=== PATIENT | female | born 1995 | race Caucasian/White ===

== ENCOUNTER 2020-05-14 00:17 | Outpatient (CLI) | payer BC, OTHER, SELFPAY ==
[2020-05-14 16:19] LABS: SARS-CoV-2 RNA PCR Negative
== END 2020-05-14 00:18 | disposition home or self-care (01) ==
LOC: ANHCOVIDDT 00:17
PROVIDERS: PCP Family Medicine; Visit Provider Internal Medicine Gastroenterology
DX: Z01.818 Encounter for other preprocedural examination (principal); Z11.59 Encounter for screening for other viral diseases; R19.7 Diarrhea, unspecified
CPT/HCPCS: 87635; C9803; U0003

== ENCOUNTER 2020-05-17 00:14 | Day surgery (SDC) | payer BC, OTHER, SELFPAY ==
[2020-05-10 13:27] VITALS: BMI 40.4
[2020-05-17 06:08] VITALS: BP 139/81; PULSE 63; RESP 18; TEMP 36.9; O2SAT 100
[2020-05-17] MEDS: LACTATED RINGERS 1,000 ML 150 ML IV CONT (06:41)
--- NOTE | 2020-05-17 07:17 | WPDANESEPPF ---
Anes - Initial Pre Proc Eval Procedure: Operation Date: 05/17/20 07:30 Proposed Procedures p Esophagogastroduodenoscopy & Colonoscopy - Yevgeniy Chavarria MD Date/Time: 05/17/20 07:17 Surgeon: Yevgeniy Chavarria MD Pre Op Diagnosis: Reflux/ Diarrhea Patient Data Age: 24 Gender: F Height: 1.68 m Weight: 115.5 kg Last Vital Signs Temp 36.9 C 05/17/20 06:08 Pulse 63 05/17/20 06:08 Resp 18 05/17/20 06:08 BP 139/81 05/17/20 06:08 Pulse Ox 100 05/17/20 06:08 Allergies Allergy/AdvReac Type Severity Reaction Status Date / Time No Known Allergies Allergy Unknown Verified 05/17/20 06:27 general anesthesia Allergy Severe Vomiting Uncoded 05/17/20 06:27 Home Medications Medication Instructions Recorded Confirmed Type lactobacillus combination no.4 3 3,000 mmu cells PO DAILY 10/20/19 05/17/20 History billion cell capsule levonorgestrel 20 mcg/24 hours (5 1 device I-UTERINE ONCE 10/20/19 05/10/20 History yrs) 52 mg intrauterine device B12 Injection 05/10/20 History peg 3350-electrolytes 236 240 ml PO Q10M #4000 ml 05/13/20 Rx gram-22.74 gram-6.74 gram-5.86 gram solution Patient hx anesthesia problems: none Family hx anesthesia problems: none PMFSH Past Medical History Medical History (Updated 04/28/20 @ 08:53 by Yevgeniy Chvaarria MD) Gastroesophageal reflux disease Leg pain Marijuana use, continuous Myalgia Thinning hair Vaginal discharge Surgical History Surgical History (Updated 04/28/20 @ 08:53 by Yevgeniy Chavarria MD) Bariatric surgery status History of laparoscopic cholecystectomy 2016 History of surgery on arm Social History Social History Smoking status: Never smoker Second hand tobacco smoke exposure: No Alcohol intake: current Drinks per week: 12 Substance use: current Substance use type: marijuana and crack/cocaine Gender identity (if verbalized by the patient): Female Anes - Eval Final PreProcedure Day of Procedure 05/17/20 07:17 Patient weight: morbidly obese Heart: regular rate and rhythm Lungs: clear to auscultation and normal air movement Airway: Mallampati scale class II Neurological: alert and oriented Last oral intake: >/= 8 hours ASA classification: III Emergent: no Anesthetic plan: proceed Anesthesia type and monitoring: general GIVS Informed Consent: The patient's anesthetic plan and its attendant risks and benefits were discussed with the patient/family/POA. Questions were solicited and answers provided to the satisfaction of the patient/family/POA.
--- NOTE | 2020-05-17 07:35 | WPDHPUPDATE1 ---
History and Physical Update Update Date/Time: 05/17/20 07:35 History and Physical has been reviewed, including an updated exam of the patient. There are NO changes in the patient's condition. Risks, benefits, and alternatives have been discussed and questions answered. Patient agrees to proceed with procedure.
--- NOTE | 2020-05-17 07:52 | SUR.OPER ---
7530 FAMILY CALLED(JO) AND UPDATED TAKING PATIENT TO PROCEDURE ROOM
[2020-05-17 08:06] VITALS: BP 110/60; PULSE 57; RESP 16; O2SAT 100
[2020-05-17 08:16] VITALS: BP 96/56; PULSE 54; RESP 18; O2SAT 99
[2020-05-17 08:26] VITALS: BP 112/63; PULSE 51; RESP 20; O2SAT 100
== END 2020-05-17 08:40 | disposition home or self-care (01) ==
PROVIDERS: PCP Family Medicine; Visit Provider Internal Medicine Gastroenterology
PROC: 0DJ08ZZ Inspection of Upper Intestinal Tract, Via Natural or Artificial Opening Endoscopic (ICD-10-PCS; CPT 43235; principal; 2020-05-17 07:30)
DX: R19.7 Diarrhea, unspecified (principal); K44.9 Diaphragmatic hernia without obstruction or gangrene; K21.0 Gastro-esophageal reflux disease with esophagitis; K29.50 Unspecified chronic gastritis without bleeding; Z98.84 Bariatric surgery status; F12.90 Cannabis use, unspecified, uncomplicated; E66.01 Morbid (severe) obesity due to excess calories; Z68.41 Body mass index [BMI] 40.0-44.9, adult
CPT/HCPCS: 45380; 43239; 88305; 88342; J2704; J7120

== ENCOUNTER 2021-03-22 11:06 | Outpatient (CLI) | payer BC, OTHER, SELFPAY ==
[2021-03-22 13:04] LABS: Hemoglobin 12.3 g/dL (12.0-15.0)
[2021-03-22 13:22] LABS: Glucose 1 Hour PP 50gm Dose 111 mg/dL
[2021-03-23 04:07] LABS: HIV 1/2 Ab P24 Ag Result Negative (Negative)
== END 2021-03-22 11:07 | disposition home or self-care (01) ==
PROVIDERS: PCP Family Medicine; Visit Provider Obstetrics & Gynecology
DX: Z34.92 Encounter for supervision of normal pregnancy, unspecified, second trimester (principal)
CPT/HCPCS: 36415; 82947; 85014; 85018; 86703; G0432

== ENCOUNTER 2021-05-01 11:19 | Observation (INO) | payer BC, OTHER, SELFPAY ==
--- NOTE | 2021-05-01 11:17 | PC.NURSE ---
Report to Honey in OB. Taken directly to OB.
--- NOTE | 2021-05-01 11:19 | LDADM ---
This patient, Ivonne Carlos, was admitted to OB Post 116 on 05/01/21 at 11:19. Plans for labor, pain management and were discussed with patient. Patient/family oriented to hospital policies and general routines including ID bracelet, bed and alarms, visiting hours, pain management, procedures, bathroom and other care routines, personal items, smoking policy, room service/diet and guest tray routines, infant security routines, and visiting hours. Patient/Family are encouraged to report perceived risks to care and to ask questions if they do not understand what they are told or what they should do. See OBIX for further documentation.
[2021-05-01 11:34] VITALS: BP 127/75; PULSE 73
[2021-05-01 11:45] VITALS: BP 118/69; PULSE 68
[2021-05-01 12:00] VITALS: BP 121/68; PULSE 67
[2021-05-01 12:02] LABS: Add Urine Microscopic? YES; Appearance Urine Cloudy (Clear); Bacteria Urine Trace /hpf; Bilirubin Urine Negative (Negative); Blood Urine Negative (Negative); Color Urine Amber (Yellow); Glucose Urine UA Negative (Negative); Ketones Urine 2+ mg/dL (Negative); Leukocyte Esterase Ur Negative LEU/UL (Negative); Mucus Urine Heavy /lpf; Nitrate Urine Negative (Negative); Protein Urine 1+ mg/dL (Negative); RBC Urine 0-2 /hpf (0-2); Specific Grav Ur 1.024 (1.001-1.035); Squamous Epithelial Cell Urine Many /hpf (Few); Urobilinogen Urine Negative mg/dL (<2.0); WBC Urine 0-3 /hpf
[2021-05-01 12:15] VITALS: BP 124/73; PULSE 65
[2021-05-01 12:30] VITALS: BP 131/66; PULSE 72
[2021-05-01] MEDS: DEXTROSE 5%/LACTATED RINGERS 1,000 ML 999 ML IV CONT ×2 (12:44→13:53)
[2021-05-01] MEDS: FAMOTIDINE 20 MG/2 ML VIAL IV PUSH (13:53)
--- NOTE | 2021-05-03 11:41 | PM.OBTRLD ---
OB - Triage/Final Diagnosis Visit Information Reason for evaluation: threatened labor Comments/Additional reasons for admission: I have assessed the risk for this patient, Ivonne Carlos, and determined that she would benefit from observation care. Evaluation Laboratory results: Laboratory Tests 05/01/21 11:50 Urine Color Kristy Urine Appearance Cloudy H Urine pH 6.0 Ur Specific [place] 1.024 Urine Protein 1+ H Urine Glucose (UA) Negative Urine Ketones 2+ H Ur Blood (Man) Negative Urine Nitrate Negative Urine Bilirubin Negative Urine Urobilinogen Negative Leukocyte Esterase Rfl Negative Urine RBC 0-2 Urine WBC 0-3 Ur Squamous Epith Cells Many H Urine Bacteria Trace Urine Mucus Heavy H
== END 2021-05-01 15:10 | disposition home or self-care (01) ==
PROVIDERS: Admitting Provider Obstetrics & Gynecology; Visit Provider Obstetrics & Gynecology
DX: O47.9 False labor, unspecified (principal); Z3A.00 Weeks of gestation of pregnancy not specified
CPT/HCPCS: 81001; 96361; 96374; G0378; G0379; J7121

== ENCOUNTER 2021-05-29 18:26 | Observation (INO) | payer BC, OTHER, SELFPAY ==
[2021-05-29 18:46] VITALS: BP 118/69; PULSE 74
[2021-05-29 19:00] VITALS: BP 121/69; PULSE 74
[2021-05-29 19:15] VITALS: BP 123/71; PULSE 63
[2021-05-29 19:46] VITALS: BMI 40.1
--- NOTE | 2021-05-29 20:59 | PC.NURSE ---
Pt to OB with pelvic pressures amnd possible ROM. Stated she had increased vaginal discharge and feeling damp . ROM plus was negative, No contractions noted. Dr. Altamirano notified. Will discharge pt to home. Pt to follow up for ultrasound tomorrow and office on saturday,
--- NOTE | 2021-05-30 09:10 | PM.OBTRLD ---
OB - Triage/Final Diagnosis Visit Information Comments/Additional reasons for admission: I have assessed the risk for this patient, Ivonne Carlos, and determined that she would benefit from observation care. Evaluation Vital signs: Vital Signs - 24 hr 05/29/21 18:46 05/29/21 19:00 05/29/21 19:15 Pulse Rate 74 74 63 Blood Pressure 118/69 121/69 123/71 Final Diagnosis (1) Pelvic pressure in : Code(s): O26.899 - Other specified related conditions, unspecified trimester; R10.2 - Pelvic and perineal pain Status: Acute
== END 2021-05-29 19:50 | disposition home or self-care (01) ==
PROVIDERS: Admitting Provider Obstetrics & Gynecology; PCP Family Medicine; Visit Provider Obstetrics & Gynecology
DX: O26.893 Other specified pregnancy related conditions, third trimester (principal); R10.2 Pelvic and perineal pain; Z3A.37 37 weeks gestation of pregnancy
CPT/HCPCS: 84112; G0378; G0379

== ENCOUNTER 2021-06-05 06:01 | Inpatient (IN) | payer BC, OTHER, SELFPAY ==
[2021-06-05] VITALS (109 sets, daily range): BP systolic 91–134; BP diastolic 40–108; PULSE 50–180; RESP 16; TEMP 36.3–36.8; O2SAT 91–100; BMI 40.5
[2021-06-05] MEDS: LACTATED RINGERS 1,000 ML 125 ML IV CONT ×2 (06:47→08:41)
[2021-06-05] MEDS: AMPICILLIN 2 GM/NS 100 ML 2 GM/100 ML BAG IVPB (06:48)
[2021-06-05] MEDS: OXYTOCIN 30 UNITS/NS 500 ML 30 UNITS/500 ML BAG IV CONT (06:52)
[2021-06-05 06:54] LABS: Basophils Percent Auto 0.3 % (0.2-1.2); Eosinophils Absolute Auto 0.1 K/mm3 (0-0.3); Eosinophils Percent Auto 0.5 % (0-4.4); Hematocrit 36.3 % (37.0-47.0); Hemoglobin 12.3 g/dL (12.0-15.0); Immature Granulocyte Absolute 0.11 K/mm3 (0.00-0.031); Lymphocytes Percent Auto 13.1 % (18.3-44.2); Mean Corpuscular HGB Conc 33.9 g/dl (32-36); Mean Corpuscular Volume 88.5 fl (80-100); Mean Platelet Volume 8.6 fl (7.4-10.4); Monocytes Absolute Auto 0.6 K/mm3 (0.1-0.6); Monocytes Percent Auto 5.3 % (2.6-8.5); Neutrophils Absolute Auto 8.5 K/mm3 (1.3-6.7); Neutrophils Percent Auto 79.8 % (45.5-73.1); Platelet Count Result 142 k/mm3 (150-375); White Blood Count 10.7 K/mm3 (4.5-10.0)
--- NOTE | 2021-06-05 07:17 | LDADM ---
This patient, Ivonne Carlos, was admitted to Labor/Delivery/Recovery 105 on 06/05/21 at 06:01. Plans for labor, pain management and were discussed with patient. Patient/family oriented to hospital policies and general routines including ID bracelet, bed and alarms, visiting hours, pain management, procedures, bathroom and other care routines, personal items, smoking policy, room service/diet and guest tray routines, security routines, and visiting hours. Patient/Family are encouraged to report perceived risks to care and to ask questions if they do not understand what they are told or what they should do. See OBIX for further documentation.
[2021-06-05 07:58] LABS: Rapid Plasma Reagin Non-Reactive (NonReactive)
--- NOTE | 2021-06-05 08:48 | WPDANESEPPF ---
Anes - Initial Pre Proc Eval Procedure: labor epidural Date/Time: 06/05/21 08:48 Surgeon: Jeramy Lynn MD Pre Op Diagnosis: labor pain Pre Op Diagnosis: Induction of Labor Patient Data Age: 25 Gender: F Height: 1.68 m Weight: 114 kg Last Vital Signs Temp 36.8 C 06/05/21 07:30 Pulse 54 L 06/05/21 08:46 BP 111/72 06/05/21 08:46 Pulse Ox 100 06/05/21 08:44 Allergies Allergy/AdvReac Type Severity Reaction Status Date / Time No Known Allergies Allergy Unknown Verified 10/14/20 10:30 Home Medications Medication Instructions Recorded Confirmed Type cyanocobalamin (vitamin B-12) 1,000 mcg IM MONTHLY #1 ml 10/14/20 06/05/21 Rx 1,000 mcg/mL injection solution PNV cmb#95-ferrous fumarate-FA 1 tablet PO DAILY 05/24/21 06/05/21 History [] metoclopramide HCl [Reglan] 10 mg PO Q6H PRN 05/24/21 06/05/21 History Laboratory Tests 06/05/21 06/05/21 06/05/21 06:43 06:43 06:43 WBC 10.7 K/mm3 H K/mm3 (4.5-10.0) RBC 4.10 M/mm3 L M/mm3 (4.2-5.4) Hgb 12.3 g/dL g/dL (12.0-15.0) Hct 36.3 % L % (37.0-47.0) MCV 88.5 fl fl (80-100) MCH 30.0 pg pg (26-34) MCHC 33.9 g/dl g/dl (32-36) RDW 14.0 % % (11.5-14.5) Plt Count 142 k/mm3 L k/mm3 (150-375) MPV 8.6 fl fl (7.4-10.4) Immature Gran % (Auto) 1.0 % H % (0-0.5) Neut % (Auto) 79.8 % H % (45.5-73.1) Lymph % (Auto) 13.1 % L % (18.3-44.2) Young % (Auto) 5.3 % % (2.6-8.5) Eos % (Auto) 0.5 % % (0-4.4) Baso % (Auto) 0.3 % % (0.2-1.2) Lymph # (Auto) 1.40 K/mm3 K/mm3 (0.9-3.2) Young # (Auto) 0.6 K/mm3 K/mm3 (0.1-0.6) Eos # (Auto) 0.1 K/mm3 K/mm3 (0-0.3) Baso # (Auto) 0.0 K/mm3 K/mm3 (0.0-0.1) Abs Immat Gran (auto) 0.11 K/mm3 H K/mm3 (0.00-0.031) Absolute Neuts (auto) 8.5 K/mm3 H K/mm3 (1.3-6.7) Absolute Nucleated RBC 0.0 K/mm3 K/mm3 (0.0-0.012) Nucleated RBC % 0.0 % % (0.0-0.2) RPR Non-reactive (NonReactive) Blood Type AB Positive Antibody Screen Negative Patient hx anesthesia problems: none Family hx anesthesia problems: none PMFSH Past Medical History Medical History (Updated 05/30/21 @ 09:10 by Jane Altamirano DO) Gastroesophageal reflux disease Leg pain Marijuana use, continuous Myalgia Thinning hair Vaginal discharge Surgical History Surgical History (Updated 04/28/20 @ 08:53 by Yevgeniy Chavarria MD) Bariatric surgery status History of laparoscopic cholecystectomy 2016 History of surgery on arm Family History Family History Grandparent Family history of type 2 diabetes mellitus Other Depression Family history of general anesthesia reaction Heart disease Hyperlipidemia Hypertension Social History Social History Smoking status: Never smoker Second hand tobacco smoke exposure: No Alcohol intake: current Drinks per week: 12 Alcohol use details: Pt says she consumes many shots of hard liquor on the weekends, 12-20 or more. Substance use: never Substance use type: marijuana and crack/cocaine Gender identity (if verbalized by the patient): Female Spiritual care concerns: No Anes - Eval Final PreProcedure Day of Procedure 06/05/21 08:48 Patient weight: morbidly obese ASA classification: III Anesthesia type and monitoring: regional epidural Informed Consent: The patient's anesthetic plan and its attendant risks and benefits were discussed with the patient/family/POA. Questions were solicited and answers provided to the satisfaction of the patient/family/POA.
[2021-06-05] MEDS: ePHEDrine sulfate INJ 50 MG/ML AMPUL IV PUSH (09:40)
[2021-06-05] MEDS: AMPICILLIN 1 GM/NS 50 ML 1 GM/50 ML BAG IVPB (10:55)
--- NOTE | 2021-06-05 12:01 | WPDHPUPDATE1 ---
History and Physical Update Update Date/Time: 06/05/21 12:01 History and Physical has been reviewed, including an updated exam of the patient. There are NO changes in the patient's condition. Risks, benefits, and alternatives have been discussed and questions answered. Patient agrees to proceed with procedure.
--- NOTE | 2021-06-05 12:01 | WPDOBADMIT ---
Obstetrics - Admit Note Admission Note: record reviewed. No pertinent additions to the history and/or any subsequent changes in the physical findings that are not consistent with the expected course of the were found. Additions to the history and/or subsequent changes in the physical findings follow. None.
--- NOTE | 2021-06-05 12:02 | PM.OBPRVD ---
OB - Delivery Note Procedure Route of delivery: Episiotomy description: None Laceration Description: None Specimen: No Quantitative Blood Loss (ml): 300 Anesthesia type: Epidural Disposition: floor Narrative: Patient prepped and draped in usual manner for this procedure. Maternal expulsive efforts readily delivered vertex and the rest of baby followed without difficulty. Cord was clamped and cut and placenta delivered spontaneously. Cervix vagina vulva were inspected with no lacerations or tears. Immediate postop condition of mother and baby were both excellent. Baby Weeks of gestation at delivery: 39 Infant gender: Male Weight (pounds): 7 Weight (ounces): 7 score one minute: 9 score five minutes: 9
[2021-06-05] MEDS: OXYTOCIN 30 UNITS/NS 500 ML 30 UNITS/500 ML BAG 125 UNITS IV CONT (12:22)
[2021-06-05] MEDS: IBUPROFEN 600 MG TABLET PO ×2 (12:57→23:58)
--- NOTE | 2021-06-05 15:59 | OBPPTRN ---
1538-Patient transferred to post room #285 via wheelchair. Support person present. Oriented to unit, room, information board, rooming in, admission packet and security measures. Patient verbalizes understanding.
[2021-06-05 16:25] LABS: Amphetamine Screen Urine Negative (Negative); Barbiturate Screen Urine Negative (Negative); Benzodiazepines Screen Urine Negative (Negative); Cannabinoid Screen Urine Positive (Negative); Cocaine Screen Urine Negative (Negative); Methadone Screen Urine Negative (Negative); Opiate Screen Urine Negative (Negative); Phencyclidine Screen Urine Negative (Negative)
[2021-06-06 05:00] VITALS: BP 112/68; PULSE 64; RESP 16; TEMP 36.3; O2SAT 99
[2021-06-06 05:47] LABS: Hematocrit 32.1 % (37.0-47.0); Hemoglobin 10.9 g/dL (12.0-15.0)
--- NOTE | 2021-06-06 07:49 | PM.OBDSVD ---
DS: Admitting Diagnosis Admitting Diagnosis Admitting Diagnosis: OB - DS: Summary OB Procedures : None OB Procedures Intrapartum: Spontaneous Vag Delivery OB Procedures: : None Time Spent with Patient Time attestation: Total time spent providing and/or coordinating discharge services: DS: Data Data Completed and Pending Labs on day of discharge: Labs from last 24 hours 06/06/21 06/05/21 06/05/21 05:37 15:20 06:43 Hgb 10.9 L Hct 32.1 L Urine Opiates Screen Negative Urine Methadone Screen Negative Ur Barbiturates Screen Negative Ur Phencyclidine Scrn Negative Ur Amphetamine Screen Negative U Benzodiazepines Scrn Negative Urine Cocaine Screen Negative U Cannabinoids Screen Positive A RPR Blood Type AB Positive Antibody Screen Negative 06/05/21 06:43 Hgb Hct Urine Opiates Screen Urine Methadone Screen Ur Barbiturates Screen Ur Phencyclidine Scrn Ur Amphetamine Screen U Benzodiazepines Scrn Urine Cocaine Screen U Cannabinoids Screen RPR Non-reactive Blood Type Antibody Screen Discharge Plan Discharge Discharging Clinician: Jeramy Lynn Patient Disposition: Home, Self-Care Activity: as tolerated Diet: as tolerated Patient Instructions: Antibiotic Form Stand Alone Forms: General Discharge Information Follow-up/Referrals: Jeramy Lynn MD [Physician] - 3 Weeks Discharge Medications: New ibuprofen 600 mg Tablet 600 mg PO Q6H PRN (Reason: Cramping) Qty: 30 RF: 0 Continued metoclopramide HCl [Reglan] 10 mg Tablet 10 mg PO Q6H PRN (Reason: Nausea) RF: 0 PNV cmb#95-ferrous fumarate-FA [] 28 mg iron- 800 mcg Tablet 1 tablet PO DAILY RF: 0 cyanocobalamin (vitamin B-12) 1,000 mcg/mL solution 1,000 mcg IM MONTHLY Qty: 1 RF: 11 Date of admission: 06/05/21 06:01 Primary Care Provider: Prerna Chirinos Admitting Provider: Jeramy Lynn Attending physician on admission: Jeramy Lynn Condition: Stable
--- NOTE | 2021-06-06 07:57 | WPDANLDPN2 ---
Anes-Prog Note L&D Date/Time: 06/06/21 07:57 Comfortable throughout: labor and delivery Neuraxial method: epidural Epidural/Spinal procedure site: clean & non-tender Neuro status: Neuro function grossly intact. Cardiovascular status: normal Respiratory status: normal Airway patency: baseline Mental status: baseline Post-Op hydration status: normal Vital Signs: Last Vital Signs Temp 36.3 C L 06/06/21 05:00 Pulse 64 06/06/21 05:00 Resp 16 06/06/21 05:00 BP 112/68 06/06/21 05:00 Pulse Ox 99 06/06/21 05:00 Pain score (VAS): 0 I/O: Intake & Output 06/05/21 06/05/21 06/06/21 15:59 23:59 07:59 Intake Total 2650 Output Total 1325 Balance 1325 Post-procedural complaints: none Patient feedback: Patient satisfied with anesthetic care.
[2021-06-06 08:05] VITALS: BP 119/72; PULSE 66; RESP 16; TEMP 37.2; O2SAT 100
[2021-06-06] MEDS: IBUPROFEN 600 MG TABLET PO ×2 (14:44→20:55)
[2021-06-06] MEDS: BENZOCAINE 20% AER SPR (*SP) 56 GM CAN 1 SPRAY TOPICAL (14:44)
[2021-06-06] MEDS: WITCH HAZEL 40 PADS 1 PAD TOPICAL (14:44)
[2021-06-06] MEDS: SERTRALINE HCL 50 MG TABLET PO (14:45)
--- NOTE | 2021-06-06 15:55 | PCCCNOTE ---
Care Coordination note: Pt. referred to Care coordination for mom and baby having positive UDS for marijuana. Mother also reports history of cocaine use earlier in . Spoke with Donald Walsh with [facility] hotline who took report for situation. Spoke with Tianna [facility] investigator fraud, who will be out to see pt. later today. She reports likely won't take baby into care. Met with pt. and FOB at bedside. They report plans to return home together with pt.'s parents and pt.'s 6 year son. Pt. reports having baby shower and all necessary baby care items. She's also setup with [facility]. Pt. reports marijuana use to me and that cocaine use was a long time ago. RN reports pt. had said she was using cocaine after and grandparent to cope, but has quit. Awaiting [facility] decision. Left a message with RN, Noemi, to see if she has heard from investigator fraud. Will follow.
[2021-06-06 20:55] VITALS: BP 130/76; PULSE 57; RESP 16; TEMP 36.9
[2021-06-07 08:00] VITALS: PULSE 78; RESP 16; O2SAT 99
[2021-06-07 12:12] VITALS: BP 137/80; PULSE 78; RESP 16; TEMP 36.9; O2SAT 99
[2021-06-08 09:35] VITALS: BP 136/61; PULSE 63; RESP 20; TEMP 36.9; O2SAT 100
--- NOTE | 2021-06-09 12:24 | P.DS_ITS ---
DS: Admitting Diagnosis Admitting Diagnosis Admitting Diagnosis: OB - DS: Summary OB Procedures : None OB Procedures Intrapartum: Spontaneous Vag Delivery OB Procedures: : None Time Spent with Patient Time attestation: Total time spent providing and/or coordinating discharge services: Discharge Plan Discharge Consulting providers: Jose Palma Discharging Clinician: Jeramy Lynn Patient Disposition: Home, Self-Care Activity: as tolerated Diet: as tolerated Discharge Instructions: Education: Mom and Baby Guide Given to: Mother Follow-Up: Call your delivering provider's office for an appointment to be seen in: 3 weeks Mom and baby should come to the [facility] for the follow-up appointment. Appointment Date/Time: June 08, 2021 at 9:00 am What to expect at your follow-up visit: Blood Pressure Check Physical Assessment Call [phone] if you are unable to keep your appointment time. BREAST CARE: * Wear a snug supportive bra. * For engorgement discomfort: Bottle Feeding: * May apply ice packs EPISIOTOMY/PERINEAL CARE: * Until bleeding stops, use your melissa bottle after urinating * Change your pad frequently throughout the day * You may take sitz baths several times a day (fill your bathtub with warm water and soak for 20 minutes.) Do NOT bathe in the water * No tub baths until seen by your physician - You may shower ACTIVITY: * Rest as much as possible. * Do not exercise or lift anything heavier than your baby (such as laundry or other children.) * Avoid stairs or driving as much as possible for about two weeks. * Do not put anything into the vagina. No douching, tampons, or sexual activity until seen by physician. NOTIFY PHYSICIAN IF YOU HAVE ANY QUESTIONS OR IF ANY OF THE FOLLOWING SYMPTOMS OCCUR: * If your vaginal area becomes red, swollen, or more painful than what you have experienced in the hospital. * If your vaginal bleeding becomes foul smelling. * If your vaginal bleeding becomes more heavy than a period or if your bleeding changes from pink to bright red. However, you may pass an occasional walnut- sized clot once or twice for the first week . * If you experience a sharp, shooting pain in your calves. * If you discover a hard, reddened area on your breast or if you experience flu- like symptoms. DIET: * Eat regular, well-balanced meals. * Drink plenty of fluids daily. Patient Instructions: Vaginal Delivery (DC) Stand Alone Forms: General Discharge Information Follow-up/Referrals: Jeramy Lynn MD [Physician] - 3 Weeks Discharge Medications: New ibuprofen 600 mg Tablet 600 mg PO Q6H PRN (Reason: Cramping) Qty: 30 RF: 0 Continued metoclopramide HCl [Reglan] 10 mg Tablet 10 mg PO Q6H PRN (Reason: Nausea) RF: 0 PNV cmb#95-ferrous fumarate-FA [] 28 mg iron- 800 mcg Tablet 1 tablet PO DAILY RF: 0 cyanocobalamin (vitamin B-12) 1,000 mcg/mL solution 1,000 mcg IM MONTHLY Qty: 1 RF: 11 Date of admission: 06/05/21 06:01 Primary Care Provider: Prerna Chirinos Admitting Provider: Jeramy Lynn Attending physician on admission: Jeramy Lynn Condition: Stable
== END 2021-06-07 10:45 | disposition home or self-care (01) | DRG 807 ==
LOC: ANHLDR 06:05 → ANHOB2 15:49
PROVIDERS: Admitting Provider Obstetrics & Gynecology; PCP Family Medicine; Visit Provider Obstetrics & Gynecology
DX: O99.824 Streptococcus B carrier state complicating childbirth (principal); Z37.0 Single live birth; O76 Abnormality in fetal heart rate and rhythm complicating labor and delivery; Z3A.39 39 weeks gestation of pregnancy
CPT/HCPCS: 36415; 80307; 85014; 85018; 85025; 86592; 86850; 86900; 86901; A9270; J0290; J2590; J2795; J7120

== ENCOUNTER 2021-10-29 15:15 | Emergency (ER) | payer OTHER, SELFPAY ==
--- NOTE | ~2021-10-29 | CT_ITS ---
EXAMINATION: CT chest abdomen pelvis w con DATE: 10/29/2021 17:39 INDICATION: Back pain radiating to the chest. TECHNIQUE: Computed tomography (CT) of the chest, abdomen, and pelvis was performed with 100 mL Omnip aque 350 intravenous contrast. Automated exposure control and iterative reconstruction technique were employed. The dose-length product was 1560.55 mGy-cm. COMPARISON: None FINDINGS: CHEST CT: There is minimal atelectasis bilaterally. There is a 3 mm nodule left lower lobe, likely benign. Ther e is a 3 mm nodule in left upper lobe, likely benign. There is a 3.7 x 3.5 cm part solid mass in left lung upper lobe. No pleural effusion. The heart size is normal. No pericardial effusion. There is mi ld chronic height loss of multiple vertebral bodies. ABDOMEN/PELVIS CT: There are surgical changes in the stomach. The liver is normal. There are changes of cholecystectomy. There is mild splenomegaly. The pancreas, adrenal glands, and kidneys are normal. There is an intrau terine device that punctures the myometrium and extends beyond the margins of the uterus. There are n o dilated loops of bowel. The appendix is normal. There are no pathologically enlarged lymph nodes. T here is no free intraperitoneal fluid. IMPRESSION: 1. Part-solid mass in left lung upper lobe, consistent with pneumonia. 2. Mild splenomegaly, which may be secondary to obesity. 3. Intrauterine device in abnormal position with myometrial perforation. Reviewed, dictated and finalized at location A. IAC REHABILITATION PROGRAM DIRECTOR
--- NOTE | ~2021-10-29 | XR_ITS ---
EXAMINATION: XR chest 2V DATE: 10/29/2021 17:03 INDICATION: Chest pain. TECHNIQUE: Frontal and lateral views of the chest were obtained. COMPARISON: None. FINDINGS: There is a nodule in left suprahilar region. No pleural effusion or pneumothorax. The heart size is normal. IMPRESSION: 1. Nodule in left suprahilar region, most likely infection given the patient's age. Reviewed, dictated and finalized at location A. IDER RELATIONS REP
[2021-10-29 15:17] VITALS: BP 145/81; PULSE 85; RESP 18; TEMP 36.3; O2SAT 100
[2021-10-29 16:01] LABS: Hematocrit 42.1 % (37.0-47.0); Hemoglobin 13.7 g/dL (12.0-15.0); Immature Granulocyte Absolute 0.01 K/mm3 (0.00-0.031); Immature Granulocyte Percent A 0.3 % (0-0.5); Lymphocytes Absolute Auto 0.79 K/mm3 (0.9-3.2); Lymphocytes Percent Auto 27.2 % (18.3-44.2); Mean Corpuscular HGB Conc 32.5 g/dl (32-36); Mean Corpuscular Hemoglobin 27.4 pg (26-34); Mean Corpuscular Volume 84.2 fl (80-100); Mean Platelet Volume 8.9 fl (7.4-10.4); Monocytes Absolute Auto 0.2 K/mm3 (0.1-0.6); Monocytes Percent Auto 7.6 % (2.6-8.5); Neutrophils Absolute Auto 1.9 K/mm3 (1.3-6.7); Neutrophils Percent Auto 63.9 % (45.5-73.1); Platelet Count Result 148 k/mm3 (150-375); Red Cell Distribution Width 14.1 % (11.5-14.5); White Blood Count 2.9 K/mm3 (4.5-10.0)
[2021-10-29 16:07] LABS: Add Urine Microscopic? YES; Appearance Urine Cloudy (Clear); Bacteria Urine Trace /hpf; Bilirubin Urine Negative (Negative); Blood Urine 3+ (Negative); Color Urine Yellow (Yellow); Glucose Urine UA Negative (Negative); Ketones Urine Negative (Negative); Leukocyte Esterase Ur Negative LEU/UL (Negative); Mucus Urine Rare /lpf; Nitrate Urine Negative (Negative); Protein Urine 1+ mg/dL (Negative); RBC Urine >75 /hpf (0-2); Squamous Epithelial Cell Urine Few /hpf (Few); Urobilinogen Urine Negative mg/dL (<2.0); WBC Urine 0-3 /hpf
[2021-10-29 16:19] LABS: Alanine Aminotransferase 12 U/L (4-35); Albumin Level 4.6 g/dL (3.5-5.1); Alkaline Phosphatase 75 U/L (38-126); Anion Gap 8 mmol/L (8-16); Aspartate Amino Transferase 19 U/L (14-36); Bilirubin,Total 0.2 mg/dL (0.2-1.3); Blood Urea Nitrogen 14 mg/dL (7-17); Calcium 8.8 mg/dL (8.4-10.2); Carbon Dioxide 27 mmol/L (22-30); Chloride 103 mmol/L (98-107); Estimated CRCL calculation 114 ml/min; Estimated Glomerular Filt Rate > 60; Glucose 59 mg/dL (65-110); Lipase 186 U/L (23-300); Potassium 4.1 mmol/L (3.4-5.0); Sodium 138 mmol/L (137-145)
--- NOTE | 2021-10-29 16:49 | ECG_ITS ---
Measurements Intervals Ballinger Rate: 58 P: 17 NV: 123 QRS: 70 QRSD: 92 T: 59 QT: 415 QTc: 410 Interpretive Statements SINUS BRADYCARDIA BORDERLINE ECG Electronically Signed On 10-29-2021 17:10:34 METAL BENDING MACHINE OPERATOR by Jose Eduardo Rosenbaum D.O.
--- NOTE | 2021-10-29 16:56 | ED.GENADULT ---
HPI - General Adult General Chief complaint: Back Pain/Injury Stated complaint: low back pain, headache Time Seen by Provider: 10/29/21 15:34 Source: patient Mode of arrival: ambulatory Limitations: no limitations History of Present Illness HPI narrative: Pt presents for evaluation of back pain. She states she developed bilateral lower back pain Saturday. She cannot identify any precipitating cause or injury. Pain initially progressively worsened but has been stable for the last 2 days. She states the pain is constant, described as a burning pain currently rated 6 out of 10 in severity. Last she developed pain in the midline of her thoracic spine. She cannot identify any precipitating cause or injury to that pain. She states the pain radiates directly into her sternum. Pain is more noticeable when walking. She denies cough, SOB, fever and chills. She has experienced nausea. She denies any urinary symptoms but states she has had urinary tract infections in the past and was asymptomatic. LMP now. She has tried taking tylenol for her symptoms without much improvement thereafter. She reports a global headache since Saturday and describes the pain as pressure . She has associated with retro-orbital pain bilaterally. She also has some neck pain without neck stiffness. She has a hx of gastric sleeve several years ago and denies any postoperative complications. Related Data Home Medications Medication Instructions Recorded Confirmed buspirone 5 mg PO 10/29/21 Allergies Allergy/AdvReac Type Severity Reaction Status Date / Time No Known Allergies Allergy Unknown Verified 10/29/21 15:25 Review of Systems Review of Systems: CONSTITUTIONAL: Denies fever, chills, or sweats. EYES: Reports bilateral retro-orbital pain. Denies visual changes, redness, or discharge. ENT: Denies rhinorrhea, congestion, sore throat, or otalgia. CARDIOVASCULAR: Reports chest pain. Denies palpitations or edema. RESPIRATORY: Denies cough or dyspnea. GASTROINTESTINAL: Reports nausea without vomiting. Denies abdominal pain and diarrhea GENITOURINARY: Denies dysuria or hematuria. SKIN: Denies rash or itching. MUSCULOSKELETAL: Reports back pain. Denies joint pain, or myalgia. NEUROLOGIC:Reports headache. Denies numbness, dizziness, or weakness. PSYCHIATRIC: Denies anxiety or depression. [facility] Past Medical History Medical History Gastroesophageal reflux disease Leg pain Marijuana use, continuous Myalgia Thinning hair Vaginal discharge Surgical History Surgical History Bariatric surgery status History of laparoscopic cholecystectomy 2016 History of surgery on arm Family History Family History (Updated 10/29/21 @ 17:01 by Earl Santos [facility], ) Grandparent Family history of type 2 diabetes mellitus Father Heart disease Other Depression Family history of general anesthesia reaction Hyperlipidemia Hypertension Social History Social History Smoking status: Never smoker Second hand tobacco smoke exposure: No Alcohol intake: current Drinks per week: 12 Alcohol use details: Pt says she consumes many shots of hard liquor on the weekends, 12-20 or more. Substance use: never Substance use type: marijuana and crack/cocaine Gender identity (if verbalized by the patient): Female Spiritual care concerns: No Exam Narrative: GENERAL: Well-appearing, well-nourished, and in no acute distress. HEAD: Normocephalic, atraumatic. EYES: PERRLA and EOMI. ENT: Nares clear, no rhinorrhea or epistaxis. Mucous membranes moist. Oropharynx without tonsillar hypertrophy exudate or other lesions. Bilateral TMs pearly hagan nonbulging NECK: Supple. Tenderness in midline and paraspinous muscles bilaterally of the cervical spine no adenopa
[2021-10-29 17:11] LABS: Glucose Point of Care 76 mg/dl (65-105)
[2021-10-29 17:38] LABS: CRP < 0.5 mg/dL (<1.0)
[2021-10-29 17:48] LABS: Troponin I < 0.012 ng/mL (0.000-0.034)
[2021-10-29 17:53] LABS: Erythrocyte Sedimentation Rate 14 mm/hr (0-20)
[2021-10-29 18:05] LABS: Lactic Acid Reflex 1.1 mmol/L (0.7-2.1)
[2021-10-29 18:15] VITALS: BP 135/85; PULSE 87; RESP 14; O2SAT 100
[2021-10-29 19:41] VITALS: BP 139/90; PULSE 78; RESP 18; O2SAT 98
== END 2021-10-29 19:43 | disposition home or self-care (01) ==
PROVIDERS: Emergency Medicine; Emergency Provider Nurse Practitioner; PCP Family Medicine
DX: J18.9 Pneumonia, unspecified organism (principal); T83.32XA Displacement of intrauterine contraceptive device, initial encounter; K21.9 Gastro-esophageal reflux disease without esophagitis
CPT/HCPCS: 36415; 71046; 71260; 74177; 80053; 81001; 81025; 82948; 83605; 83690; 84484; 85025; 85652; 86140; 93005; 99284; Q9967

== ENCOUNTER 2022-03-06 09:54 | Outpatient (CLI) | payer OTHER, SELFPAY ==
[2022-03-06 11:25] LABS: Basophils Percent Auto 0.1 % (0.2-1.2); Eosinophils Percent Auto 0.4 % (0-4.4); Hematocrit 37.7 % (37.0-47.0); Hemoglobin 12.5 g/dL (12.0-15.0); Immature Granulocyte Absolute 0.03 K/mm3 (0.00-0.031); Immature Granulocyte Percent A 0.4 % (0-0.5); Lymphocytes Absolute Auto 0.96 K/mm3 (0.9-3.2); Lymphocytes Percent Auto 13.6 % (18.3-44.2); Mean Corpuscular HGB Conc 33.2 g/dl (32-36); Mean Corpuscular Hemoglobin 27.8 pg (26-34); Mean Platelet Volume 8.6 fl (7.4-10.4); Monocytes Absolute Auto 0.3 K/mm3 (0.1-0.6); Monocytes Percent Auto 4.2 % (2.6-8.5); Neutrophils Absolute Auto 5.7 K/mm3 (1.3-6.7); Neutrophils Percent Auto 81.3 % (45.5-73.1); Platelet Count Result 160 k/mm3 (150-375); Red Blood Count 4.49 M/mm3 (4.2-5.4); Red Cell Distribution Width 15.9 % (11.5-14.5); White Blood Count 7.1 K/mm3 (4.5-10.0)
[2022-03-06 11:43] LABS: Glucose 1 Hour PP 50gm Dose 117 mg/dL
[2022-03-06 12:19] LABS: HIV 1/2 Ab P24 Ag Result Negative (Negative)
[2022-03-06 13:02] LABS: Hepatitis B Surface Antigen Negative (Negative); Rubella IgG Antibody 52.9 IU/ML
[2022-03-07 14:15] LABS: Rapid Plasma Reagin Non-Reactive (NonReactive)
[2022-03-08 20:02] LABS: CMV IgG Antibody <0.60 U/mL (<0.60)
== END 2022-03-06 09:55 | disposition home or self-care (01) ==
PROVIDERS: PCP Family Medicine; Visit Provider Obstetrics & Gynecology
DX: N94.89 Other specified conditions associated with female genital organs and menstrual cycle (principal)
CPT/HCPCS: 36415; 82947; 84702; 85025; 86592; 86644; 86703; 86747; 86762; 86787; 86850; 86900; 86901; 87086; 87088; 87147; 87340; G0432

== ENCOUNTER 2023-04-16 10:43 | Emergency (ER) | payer OTHER, SELFPAY ==
--- NOTE | ~2023-04-16 | XR_ITS ---
EXAMINATION: XR chest 2V DATE: 04/16/2023 12:33 INDICATION: Chest heaviness. TECHNIQUE: Frontal and lateral views of the chest were obtained. COMPARISON: Chest 2 views 10/29/2021, chest CT 10/29/2021 FINDINGS: There is no pneumonia, pleural effusion, or pneumothorax. The heart size is normal. IMPRESSION: 1. No acute cardiopulmonary disease. Reviewed, dictated and finalized at location A.
[2023-04-16 10:59] VITALS: BP 120/59; PULSE 90; RESP 16; TEMP 37.1; O2SAT 100
--- NOTE | 2023-04-16 11:43 | ED.GENADULT ---
HPI - General Adult General Chief complaint: Unspecified Stated complaint: Vaginal Pain/Headaches Source: patient Mode of arrival: ambulatory Limitations: no limitations History of Present Illness HPI narrative: Patient presents for evaluation of multiple complaints. She reports feeling dizzy with a whooshing sensation in her ears for about eight months. she has also experienced a headache and shortness of breath for about same duration of time. Shortness of breath is intermittent and she has associated chest tightness. She has not had health insurance until as of late which prompted her to come in today. She indicates she has an approximately 1-2 months ago. She has experienced a burning sensation, itching and vaginal discharge since that time. She states the discharge is yellow in appearance. She has had gonorrhea and chlamydia in the past. She states her male partner was acting strange around the time of symptom onset so she would like STI testing. She reports high stress levels related to caring for 4 children and finances. Related Data Allergies Allergy/AdvReac Type Severity Reaction Status Date / Time No Known Allergies Allergy Unknown Verified 04/16/23 11:24 Review of Systems Review of Systems: CONSTITUTIONAL: Denies fever, chills, or sweats. EYES: Denies visual changes, redness, or discharge. ENT: Reports whooshing sound in both ears. Denies rhinorrhea, congestion, sore throat, or otalgia. CARDIOVASCULAR: Reports chest tightness. Denies chest pain per se. Denies palpitations or edema. RESPIRATORY: Reports shortness of breath. GASTROINTESTINAL: Denies abdominal pain, nausea, vomiting, or diarrhea. GENITOURINARY: Reports vaginal burning and itching. Denies dysuria or hematuria. SKIN: Denies rash or itching. MUSCULOSKELETAL: Denies back pain, joint pain, or myalgia. NEUROLOGIC: Reports dizziness and headaches PSYCHIATRIC: Reports high stress level [facility] Past Medical History Medical History Depression Gastroesophageal reflux disease Leg pain Marijuana use, continuous Myalgia Thinning hair Vaginal discharge Surgical History Surgical History Bariatric surgery status History of gynecological procedure 11/09/20[place] History of laparoscopic cholecystectomy 2016 History of surgery on arm Family History Family History Grandparent Family history of type 2 diabetes mellitus Father Heart disease Other Depression Family history of general anesthesia reaction Hyperlipidemia Hypertension Social History Social History Smoking status: Never smoker Second hand tobacco smoke exposure: No Alcohol intake: current Substance use: current Substance use type: marijuana Gender identity (if verbalized by the patient): Female Spiritual care concerns: No Exam Narrative: GENERAL: Well-appearing, well-nourished, and in no acute distress. HEAD: Normocephalic, atraumatic. EYES: PERRLA and EOMI. ENT: Nares clear, no rhinorrhea or epistaxis. Mucous membranes moist. Oropharynx without tonsillar hypertrophy exudate or other lesions. Bilateral TMs pearly hagan nonbulging NECK: Supple. No adenopathy or masses. No carotid bruits or JVD CHEST: Clear to auscultation. No respiratory distress. No wheezes rales or rhonchi HEART: Regular rate and rhythm. No murmur heard. Normal peripheral pulses. ABDOMEN: Soft, nontender, nondistended, normal active bowel sounds. EXTREMITIES: Normal range of motion. No edema. GENITAL: no external genital lesions. No adnexal tenderness. No cervical motion tenderness. Moderate amount of thick milky yellow discharge in vaginal vault SKIN: Warm, dry, no rash. NEURO: No focal deficits. Alert an
--- NOTE | 2023-04-16 12:22 | ECG_ITS ---
Measurements Intervals [place] Rate: 70 P: 2 SC: 125 QRS: 72 QRSD: 90 T: 47 QT: 379 QTc: 410 Interpretive Statements SINUS RHYTHM WITH SINUS ARRHYTHMIA BASELINE ARTIFACT- I, II, III, AVL, AVF, V2 NORMAL ECG COMPARED TO ECG 10/29/2021 17:08:48 SINUS RHYTHM NOW PRESENT SINUS ARRHYTHMIA NOW PRESENT Electronically Signed On 04-16-2023 12:45:55 CDT by Jose Eduardo Rosenbaum D.O.
== END 2023-04-16 12:50 | disposition home or self-care (01) ==
PROVIDERS: Emergency Provider Nurse Practitioner; PCP Family Medicine
DX: F41.9 Anxiety disorder, unspecified (principal); N30.00 Acute cystitis without hematuria; F12.90 Cannabis use, unspecified, uncomplicated; K21.9 Gastro-esophageal reflux disease without esophagitis
CPT/HCPCS: 71046; 81003; 81025; 87070; 87077; 87086; 87106; 87186; 87491; 87591; 87661; 93005; 99214; G0463

== ENCOUNTER 2024-03-26 15:31 | Emergency (ER) | payer SELFPAY ==
[2024-03-26 15:38] VITALS: BP 142/63; PULSE 98; RESP 18; TEMP 36.6; O2SAT 100
--- NOTE | 2024-03-26 15:40 | ECG_ITS ---
SEE SCANNED COPY FOR CONFIRMED REPORT MTDD
[2024-03-26 16:44] VITALS: O2SAT 100
[2024-03-26 16:47] VITALS: BP 119/65; PULSE 81; RESP 19; O2SAT 100
[2024-03-26 16:57] LABS: Basophils Percent Auto 0.4 % (0.2-1.2); Eosinophils Absolute Auto 0.1 K/mm3 (0-0.3); Eosinophils Percent Auto 1.2 % (0-4.4); Hematocrit 36.2 % (37.0-47.0); Hemoglobin 10.2 g/dL (12.0-15.0); Immature Granulocyte Absolute 0.03 K/mm3 (0.00-0.031); Immature Granulocyte Percent A 0.4 % (0-0.5); Lymphocytes Absolute Auto 1.55 K/mm3 (0.9-3.2); Lymphocytes Percent Auto 22.5 % (18.3-44.2); Mean Corpuscular HGB Conc 28.2 g/dl (32-36); Mean Corpuscular Hemoglobin 19.7 pg (26-34); Mean Corpuscular Volume 69.9 fl (80-100); Mean Platelet Volume 8.7 fl (7.4-10.4); Monocytes Absolute Auto 0.4 K/mm3 (0.1-0.6); Monocytes Percent Auto 5.2 % (2.6-8.5); Neutrophils Absolute Auto 4.8 K/mm3 (1.3-6.7); Neutrophils Percent Auto 70.3 % (45.5-73.1); Platelet Count Result 271 k/mm3 (150-375); Red Blood Count 5.18 M/mm3 (4.2-5.4); Red Cell Distribution Width 17.4 % (11.5-14.5); White Blood Count 6.9 K/mm3 (4.5-10.0)
[2024-03-26 17:08] LABS: INR 0.9; Partial Thromboplastin Time 25.5 Seconds (22.3-36.8); Prothrombin Time 12.8 Seconds (11.1-14.7)
[2024-03-26 17:10] LABS: Alanine Aminotransferase 13 U/L (6-35); Albumin Level 4.8 g/dL (3.5-5.1); Alkaline Phosphatase 61 U/L (38-126); Anion Gap 7 mmol/L (4-12); Aspartate Amino Transferase 17 U/L (14-36); Bilirubin,Total 0.5 mg/dL (0.2-1.3); Blood Urea Nitrogen 13 mg/dL (7-17); Calcium 9.4 mg/dL (8.4-10.2); Carbon Dioxide 26 mmol/L (22-30); Chloride 106 mmol/L (98-107); Estimated CRCL calculation 113 ml/min; Estimated Glomerular Filt Rate > 60; Glucose 91 mg/dL (65-110); Lipase 141 U/L (23-300); Potassium 3.5 mmol/L (3.4-5.0); Sodium 139 mmol/L (137-145)
[2024-03-26 17:21] LABS: Troponin I < 0.012 ng/mL (0.000-0.034)
[2024-03-26 17:23] LABS: Platelet Estimate Adequate (Adequate)
[2024-03-26 17:24] LABS: Hypochromasia 1+; Schistocytes None Seen
[2024-03-26 17:25] LABS: Microcytosis 1+ (NORMAL)
--- NOTE | 2024-03-26 17:27 | ED.GENADULT ---
HPI - General Adult General Chief complaint: Shortness of Breath/Dyspnea Stated complaint: sob, near syncope, + test Time Seen by Provider: 03/26/24 16:57 Source: patient Mode of arrival: ambulatory Limitations: no limitations History of Present Illness HPI narrative: 28-year-old with a history of depression, anemia needing blood transfusion, GERD here with a complaint of intermittent palpitations, shortness of breath, dizziness for past few days. Patient states that she had a similar symptoms in the past today she needed blood transfusion. She presently denies any abdominal pain or GI are vaginal bleeding. Patient states that she came to know that she is she is about 5 weeks of gestation Onset (ago): week(s) (2) Severity: mild Exacerbating factors: none Associated symptoms: denies other symptoms Related Data Allergies Allergy/AdvReac Type Severity Reaction Status Date / Time No Known Allergies Allergy Unknown Verified 04/16/23 11:24 Review of Systems Review of Systems: All systems reviewed & are unremarkable except as noted in HPI and below Constitutional: Constitutional: Reports no additional constitutional complaints Eyes: Eyes: Reports no additional eye complaints ENT: Reports system reviewed and no additional complaints, except as documented Cardiovascular: Cardiovascular: Reports as per HPI Respiratory: Respiratory: Reports no additional respiratory complaints Gastrointestinal: Gastrointestinal: Reports no additional gastrointestinal complaints Genitourinary: Genitourinary: Reports no additional female genitourinary complaints Musculoskeletal: Musculoskeletal: Reports no additional musculoskeletal complaints [facility] Past Medical History Medical History Depression Gastroesophageal reflux disease Leg pain Marijuana use, continuous Myalgia Thinning hair Vaginal discharge Surgical History Surgical History Bariatric surgery status History of gynecological procedure 11/09/20[place] History of laparoscopic cholecystectomy 2016 History of surgery on arm Family History Family History Grandparent Family history of type 2 diabetes mellitus Father Heart disease Other Depression Family history of general anesthesia reaction Hyperlipidemia Hypertension Social History Social History Smoking status: Never smoker Second hand tobacco smoke exposure: No Alcohol intake: current Substance use: current Substance use type: marijuana Gender identity (if verbalized by the patient): Female Spiritual care concerns: No Exam Narrative: GENERAL: Well-appearing, well-nourished, and in no acute distress. HEAD: Normocephalic, atraumatic. EYES: PERRLA and EOMI. ENT: Nares clear, no rhinorrhea or epistaxis. Mucous membranes moist. NECK: Supple. CHEST: Clear to auscultation. No respiratory distress. HEART: Regular rate and rhythm. No murmur heard. Normal peripheral pulses. ABDOMEN: Soft, nontender, nondistended, normal active bowel sounds. EXTREMITIES: Normal range of motion. No edema. SKIN: Warm, dry, no rash. NEURO: No focal deficits. Alert and oriented x3. PSYCH: Normal mood and affect. Course Course Emergency Course: Notified patient about her lab work, EKG. He feels comfortable going home we did she is relieved that she does not need a transfusion at this time. Advised her to drink more fluids continue home medication, follow-up with the primary doctor Vital Signs Vital signs: Vital Signs Temperature 36.6 C 03/26/24 15:38 Pulse Rate 98 03/26/24 15:38 Respiratory Rate 18 03/26/24 15:38 Blood Pressure 142/63 H 03/26/24 15:38 Pulse Oximetry 100 03/26/24 15:38 Oxygen Delivery Room Air 03/26/24 15:38 Te
[2024-03-26 17:52] VITALS: BP 117/74; PULSE 84; RESP 20; O2SAT 100
== END 2024-03-26 17:53 | disposition home or self-care (01) ==
PROVIDERS: Emergency Medicine; Emergency Provider Family Medicine; PCP Family Medicine
DX: R00.2 Palpitations (principal); D64.9 Anemia, unspecified; K21.9 Gastro-esophageal reflux disease without esophagitis; Z90.49 Acquired absence of other specified parts of digestive tract
CPT/HCPCS: 36415; 80053; 83690; 84484; 85025; 85610; 85730; 86850; 86870; 86880; 86900; 86901; 86902; 86905; 86906; 86972; 93005; 99284

== ENCOUNTER 2024-05-01 14:02 | Outpatient (CLI) | payer BC, SELFPAY ==
[2024-05-01 18:36] LABS: Basophils Percent Auto 0.3 % (0.2-1.2); Eosinophils Absolute Auto 0.1 K/mm3 (0-0.3); Eosinophils Percent Auto 1.2 % (0-4.4); Hematocrit 33.2 % (37.0-47.0); Hemoglobin 9.5 g/dL (12.0-15.0); Immature Granulocyte Absolute 0.02 K/mm3 (0.00-0.031); Immature Granulocyte Percent A 0.3 % (0-0.5); Lymphocytes Percent Auto 21.9 % (18.3-44.2); Mean Corpuscular HGB Conc 28.6 g/dl (32-36); Mean Corpuscular Hemoglobin 20.7 pg (26-34); Mean Corpuscular Volume 72.5 fl (80-100); Monocytes Absolute Auto 0.3 K/mm3 (0.1-0.6); Monocytes Percent Auto 5.7 % (2.6-8.5); Neutrophils Absolute Auto 4.2 K/mm3 (1.3-6.7); Neutrophils Percent Auto 70.6 % (45.5-73.1); Platelet Count Result 241 k/mm3 (150-375); Red Blood Count 4.58 M/mm3 (4.2-5.4); Red Cell Distribution Width 19.2 % (11.5-14.5); White Blood Count 5.9 K/mm3 (4.5-10.0)
[2024-05-01 19:02] LABS: Hypochromasia 1+; Microcytosis 2+ (NORMAL); Platelet Estimate Adequate (Adequate); Schistocytes None Seen
[2024-05-01 19:23] LABS: Alanine Aminotransferase 9 U/L (6-35); Albumin Level 4.3 g/dL (3.5-5.1); Alkaline Phosphatase 53 U/L (38-126); Anion Gap 5 mmol/L (4-12); Aspartate Amino Transferase 22 U/L (14-36); Bilirubin,Total 0.4 mg/dL (0.2-1.3); Blood Urea Nitrogen 9 mg/dL (7-17); Calcium 9.1 mg/dL (8.4-10.2); Carbon Dioxide 24 mmol/L (22-30); Chloride 109 mmol/L (98-107); Estimated Glomerular Filt Rate > 60; Glucose 75 mg/dL (65-110); Potassium 4.1 mmol/L (3.4-5.0); Sodium 138 mmol/L (137-145)
== END 2024-05-01 14:03 | disposition home or self-care (01) ==
LOC: ANHGOSHLAB 14:03
PROVIDERS: PCP Family Medicine; Visit Provider Obstetrics & Gynecology
DX: N93.9 Abnormal uterine and vaginal bleeding, unspecified (principal)
CPT/HCPCS: 36415; 80053; 84443; 85025

== ENCOUNTER 2024-05-01 14:10 | Outpatient (CLI) | payer BC, SELFPAY ==
--- NOTE | ~2024-05-01 | US_ITS ---
EXAMINATION: US pelvic complete w TV DATE: 05/01/2024 14:50 INDICATION: Pelvic pain Comparison:02/19/2022 TECHNIQUE: Multiple transabdominal and endovaginal sonographic images of the pelvis performed. FINDINGS: The uterus measures 8.2 x 4.4 x 4.8 cm. Uterine echotexture is heterogeneous. There is a sm all fibroid measuring 1.4 cm. The endometrial complex measures 9 mm. The right ovary measures 7.3 x 6.4 x 8.2 cm and the left ovary measures 3.8 x 2 x 2.7 cm. There is a right ovarian cyst measuring 7.2 x 6.4 x 5.5 cm with low-level internal echoes. Left ovary is unremar kable. There are small follicles in each ovary. Normal doppler signal in both ovaries. There is no free fluid in the pelvis. There are no abnormal masses seen on either side. IMPRESSION: 1. Small uterine fibroid measures 1.4 cm. 2: Right ovarian cyst measuring 7.2 cm. Reviewed, dictated and finalized at location B.
== END 2024-05-01 14:11 ==
PROVIDERS: PCP Family Medicine; Visit Provider Obstetrics & Gynecology
DX: N93.9 Abnormal uterine and vaginal bleeding, unspecified (principal); D25.9 Leiomyoma of uterus, unspecified; N83.201 Unspecified ovarian cyst, right side
CPT/HCPCS: 76830; 76856

== ENCOUNTER 2024-05-07 03:58 | Day surgery (SDC) | payer BC, SELFPAY ==
[2024-05-01 12:33] VITALS: BMI 37.5
--- NOTE | 2024-05-01 12:34 | PC.NURSE ---
Report to the Outpatient Waiting Room, entrance under the green pavilion located off [facility], at time _0630_ on date _[id number]_. Planned Procedure Time: _0830_. Time changes happen often and if your time is changed the preop area will call you the afternoon before. - You and your visitor will be asked to self-screen and do not enter if you have any COVID symptoms. - A mask is optional within the hospital at this time. Patients may have clear liquids (water, carbonated beverages, clear teas, apple juice) until 3 hours prior to surgery with a maximum of 20 ounces. - No food from midnight until time of surgery Take the following medications with a SIP of water the morning of surgery: __Sertraline DO NOT STOP ANY OF YOUR OTHER PRESCRIPTION MEDICATIONS PRIOR TO SURGERY ?EXCEPT THE FOLLOWING Medications to discontinue per physician None Date to take last dose Please no make-up, nail slovenian, hairspray, perfume, deodorant, or body powder the day of surgery. No jewelry (including any body piercings) or valuables the day of surgery, leave them at home. Please take a shower or bath the night before, or the morning of, surgery with an antibacterial soap. Wear comfortable, loose fitting clothing. - Jewelry must be removed prior to entering the operating room. Rings and piercings that are not removed may be cut off. - The hospital will not accept responsibility for valuables. - Please leave all valuables, including medications, at home the day of surgery. If you are going home after surgery, a licensed carry all driver must drive you home. - NO public transportation without another adult if you receive anesthesia. - We recommend that an adult stay with you for 24 hours following discharge. - We also recommend that you do not drive, make important decision, drink alcoholic beverages, or take any drugs that were not prescribed by your health care provider for at least 24 hours after your discharge time. Follow any additional instructions given to you from your surgeon. If you or anyone in your household have experienced Covid symptoms in the past week, please notify your surgeon or the nurse liaison at the phone number below for possible testing. Telephone instructions given to __Ivonne__and asked if any additional questions and then verbalized understanding. Patient advised to call surgeon office or pre surgery nurse liaison [phone] if any additional questions.
[2024-05-07] VITALS (10 sets, daily range): BP systolic 105–126; BP diastolic 51–107; PULSE 54–91; RESP 12–19; TEMP 36.4–36.9; O2SAT 96–100
--- NOTE | 2024-05-07 07:21 | WPDHPUPDATE1 ---
History and Physical Update Update Date/Time: 05/07/24 07:21 Also will be performing R ovarian cystectomy in addition to: hscope/D&C/ablation lscope/bilateral salpingectomy/R ovarian cystectomy History and Physical has been reviewed, including an updated exam of the patient. There are NO changes in the patient's condition. Risks, benefits, and alternatives have been discussed and questions answered. Patient agrees to proceed with procedure.
[2024-05-07] MEDS: LACTATED RINGERS 1,000 ML 30 ML IV CONT ×2 (07:45→10:24)
--- NOTE | 2024-05-07 07:49 | WPDANESEPPF ---
Anes - Initial Pre Proc Eval Procedure: Operation Date: 05/07/24 09:00 Proposed Procedures p Hysteroscopy Dilation and Curettage with Elda Endometrial Ablation, Bilateral Laparoscopic Salpingectomy, Right Ovarian Cystectomy - Jeramy Lynn MD Date/Time: 05/07/24 07:49 Surgeon: Jeramy Lynn MD Pre Op Diagnosis: abnormal uterine bleeding, desires sterilization Patient Data Age: 28 Gender: F Height: 1.68 m Weight: 105.5 kg Allergies Allergy/AdvReac Type Severity Reaction Status Date / Time No Known Allergies Allergy Unknown Verified 05/01/24 12:29 Home Medications Medication Instructions Recorded Confirmed Type sertraline 50 mg tablet (Zoloft) 50 mg PO DAILY #90 tabs 05/01/24 05/01/24 Rx Patient hx anesthesia problems: none Family hx anesthesia problems: none Results Review: All pre-operative results and documents have been reviewed as part of the pre-operative evaluation. [facility] Past Medical History Medical History (04/16/24) Depression Gastroesophageal reflux disease H/O transfusion of packed red blood cells (10/20/23) Leg pain Marijuana use, continuous Myalgia Thinning hair Vaginal discharge Surgical History Surgical History (Updated 05/01/24 @ 10:08 by LEOBARDO Manriquez) Bariatric surgery status Delivery by section (07/31/22) primary emergency c/s at 34 weeks 4 days History of gynecological procedure 11/09/2021 telma removal in [place] History of laparoscopic cholecystectomy 2016 History of surgery on arm Family History Family History Grandparent Family history of type 2 diabetes mellitus Father Heart disease Other Depression Family history of general anesthesia reaction Hyperlipidemia Hypertension Social History Social History (Updated 05/01/24 @ 10:10 by LEOBARDO Manriquez) Smoking status: Never smoker Second hand tobacco smoke exposure: No Smoking end date: 11/25/19 Alcohol intake: current Alcohol use details: 1 a month Substance use: current Substance use type: marijuana Other substance usage details: daily at bedtime Do You Feel Safe in your Home?: Yes Lack of Transportation: No Lack of Food: Never True Current Housing: I Have Housing Concerned About Future Housing: No Difficulty Paying Gas/Electric Bills: No Difficulty Paying for Meds: No Currently Unemployed: No Education: High School Diploma/GED Difficulty w/ Childcare or Family Care: No Living arrangements: with family Additional living arrangements comments: single Occupation/Education: occupation 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 [employer] Gender identity (if verbalized by the patient): Female Sexual Orientation (if Verbalized by the Patient): Straight or Heterosexual Spiritual care concerns: No Anes - Eval Final PreProcedure Day of Procedure 05/07/24 07:49 Patient weight: obese Heart: regular rate and rhythm Lungs: clear to auscultation Airway: Mallampati scale class II Neurological: alert and oriented Last oral intake: >/= 8 hours ASA classification: III Emergent: no Anesthetic plan: proceed Anesthesia type and monitoring: general ETT and standard monitoring Results Review: All pre-operative results and documents have been reviewed as part of the pre-operative evaluation. Informed Consent: The patient's anesthetic plan and its attendant risks and benefits were discussed with the patient/family/POA. Questions were solicited and answers provided to the satisfaction of the patient/family/POA.
[2024-05-07] MEDS: SCOPOLAMINE 1 MG PATCH 1 PATCH TRANSDERM (07:52)
[2024-05-07] MEDS: ACETAMINOPHEN 500 MG TABLET 1000 MG PO (08:30)
[2024-05-07] MEDS: KETOROLAC 15 MG/ML VIAL (*BKC) IV PUSH (08:30)
[2024-05-07] MEDS: ceFAZolin 2 GM/D5W 50 ML 2 GM/50 ML BAG IVPB (08:56)
--- NOTE | 2024-05-07 10:27 | W.PM.PROC2 ---
Procedure Note - Detailed Date of Procedure 05/07/24 Pre-op Diagnosis 1. Irregular vaginal bleeding 2. Undesired fertility 3. Right ovarian cyst Post-op Diagnosis Same (4. Adhesions) Procedure Performed 1. Laparoscopic adhesiolysis 2. Laparoscopic bilateral salpingectomy 3. Laparoscopic right ovarian cystectomy 4. Hysteroscopy 5. Dilation and curettage 6. Endometrial ablation (failed) Surgeon Jeramy Lynn MD Anesthesia General Findings 1. Omental adhesions in the area of the prior scar 2. Right ovarian cyst 3. Thickened endometrium Description of Procedure Patient prepped and draped usual manner for this procedure. Cervical instruments were placed for uterine mobility throughout the case. Attention was then placed the abdomen and midline and lateral trocars were placed under direct visualization with findings noted as above. The mesial salpinx was cauterized and cut bilaterally and tubes removed without difficulty. Ovarian cyst had [id number] clear fluid drained, then the ovary was opened and cyst wall was removed. There was small amount of oozing and Surgicel powder was placed. The mesial salpinx bilaterally was hemostatic, no other abnormalities were noted, and gas was allowed to escape and these incisions were then closed using 4-0 Monocryl after the trocars removed. Attention was then placed to the vagina hysteroscopic exam was performed with thickened tissue in curettings to remove remaining tissue. Ablation instrument was placed and unable to get seal therefore this portion of the procedure was not performed. No bleeding was noted hysteroscopic exam performed no abnormalities and patient was then sent to recovery room in stable condition. Estimated Blood Loss 100 Drains No Packing No Pathology Yes Complications No immediate complications Condition Stable Disposition PACU [facility] Billing Surgery - Charge Forward: Surgery Billing
[2024-05-07] MEDS: fentaNYL CITRATE INJ (*CRX) 100 MCG/2 ML VIAL 25 MCG IV PUSH ×5 (10:32→11:59)
[2024-05-07] MEDS: ONDANSETRON INJ 4 MG/2 ML VIAL IV PUSH (11:04)
--- NOTE | 2024-05-07 11:05 | SUR.PHASEI ---
Simple mask removed at 1055.
[2024-05-07] MEDS: oxyCODONE HCL (*CRX) 5 MG TAB IR PO (11:59)
== END 2024-05-07 13:20 | disposition home or self-care (01) ==
PROVIDERS: PCP Family Medicine; Visit Provider Obstetrics & Gynecology
PROC: 0UDB8ZZ Extraction of Endometrium, Via Natural or Artificial Opening Endoscopic (ICD-10-PCS; CPT 58558; principal; 2024-05-07 09:00)
DX: D27.0 Benign neoplasm of right ovary (principal); N93.9 Abnormal uterine and vaginal bleeding, unspecified; Z30.2 Encounter for sterilization; N92.0 Excessive and frequent menstruation with regular cycle; F32.1 Major depressive disorder, single episode, moderate; F12.90 Cannabis use, unspecified, uncomplicated; E66.9 Obesity, unspecified; Z68.36 Body mass index [BMI] 36.0-36.9, adult
CPT/HCPCS: 58661; 58662; 58563; 88302; 88305; A9270; J0690; J1100; J1885; J2250; J2405; J2704; J3010; J7120

== ENCOUNTER 2024-05-26 06:59 | Outpatient (CLI) | payer BC, SELFPAY ==
[2024-05-26 07:29] LABS: Hematocrit 31.3 % (37.0-47.0); Hemoglobin 8.7 g/dL (12.0-15.0); Mean Corpuscular HGB Conc 27.8 g/dl (32-36); Mean Corpuscular Hemoglobin 20.2 pg (26-34); Mean Corpuscular Volume 72.6 fl (80-100); Mean Platelet Volume 8.3 fl (7.4-10.4); Platelet Count Result 184 k/mm3 (150-375); Red Blood Count 4.31 M/mm3 (4.2-5.4); Red Cell Distribution Width 16.6 % (11.5-14.5); White Blood Count 4.2 K/mm3 (4.5-10.0)
[2024-05-26 08:06] LABS: Hemoglobin A1C 4.6 % (<5.7)
[2024-05-26 08:27] LABS: Alanine Aminotransferase 9 U/L (6-35); Albumin Level 4.3 g/dL (3.5-5.1); Alkaline Phosphatase 60 U/L (38-126); Anion Gap 5 mmol/L (4-12); Aspartate Amino Transferase 17 U/L (14-36); Bilirubin,Total 0.5 mg/dL (0.2-1.3); Blood Urea Nitrogen 15 mg/dL (7-17); Calcium 9.2 mg/dL (8.4-10.2); Carbon Dioxide 29 mmol/L (22-30); Chloride 108 mmol/L (98-107); Estimated Glomerular Filt Rate > 60; Glucose 96 mg/dL (65-110); Potassium 4.4 mmol/L (3.4-5.0); Sodium 142 mmol/L (137-145)
[2024-05-26 09:23] LABS: Folic Acid 7.2 ng/mL (2.76->20)
[2024-05-28 04:33] LABS: Triiodothyronine T3 Free 3.2 pg/mL (2.3-4.2)
[2024-05-30 13:39] LABS: Vitamin D 1,25 (OH)2 Total 37 pg/mL (18-72); Vitamin D2 1,25 (OH)2 <8 pg/mL; Vitamin D3 1,25 (OH)2 37 pg/mL
== END 2024-05-26 07:00 | disposition home or self-care (01) ==
LOC: ANHLAB 07:00
PROVIDERS: PCP Family Medicine; Visit Provider Obstetrics & Gynecology
DX: R53.83 Other fatigue (principal)
CPT/HCPCS: 36415; 80053; 82607; 82652; 82746; 83036; 84439; 84443; 84481; 85027

== ENCOUNTER 2025-07-30 09:39 | Outpatient (CLI) | payer SELFPAY ==
--- OUTSIDE RECORDS SUMMARY | 2025-07-30 10:11 | XMS_ITS | Clinical Summary ---
Author Organization [facility] [address] [facility] [address] [place] [address] Phone Care Team Providers Care Sustainability Communicator Name Role Phone John Bernal MD Primary Care Provider [phone] Social History Tobacco Use Types Packs/Day Years Used Date Smoking Tobacco: Never Assessed Comments Unknown Sex and Gender Information Value Date Recorded Sex Assigned at Not on file Legal Sex Female 8:26 AM CDT Gender Identity Not on file Sexual Orientation Not on file Plan of Treatment Health Maintenance Due Date Last Done Comments DTAP/TDAP/TD VACCINES (1 - Tdap) 2014 HEPATITIS B VACCINES (1 of 3 - 19+ 3-dose series) 09/25 CERVICAL CANCER SCREENING 2016 HPV/Cotest (21-29) 2016 PAP SMEAR 2016 HPV VACCINES (1 - 3-dose SCDM series) 2022 INFLUENZA VACCINE (#1) 2025 Insurance BCBS BLUE ACCESS/TRUE BLUE PPO Care Teams Sustainability Communicator Relationship Specialty Start Date End Date John Bernal MD [address] [facility] [address] [place] [address] PCP - General Obstetrics and Gynecology 04/11/15
--- OUTSIDE RECORDS SUMMARY | 2025-07-30 10:11 | XMS_ITS | Clinical Summary ---
Author Organization [facility] Address [address] [place] [address] Care Team Providers Care Plumbing And Heating Contractor Name Role Phone Unavailable Primary Care Provider Unavailabl e Source Comments [facility],non-owned Affiliates and Associated Physician Practices is amultiple site organization consisting of ambulatory clinics and hospital sitesin [place], [place], [place] and [place]. This disclosure is being madepursuant to the Care Everywhere program and may not contain all information available regarding this patient. 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 Gender Identity Not on file Sexual Orientation Not on file Plan of Treatment Health Maintenance Due Date Last Done Comments HIV SCREENING 2010 HEPATITIS C SCREENING 10/05/2013 DTAP/TDAP/TD VACCINES (1 - Tdap) 2014 HEPATITIS B VACCINE (1 of 3 - 19+ 3-dose series) 2014 PAP SMEAR 2016 HPV VACCINE (1 - 3-dose SCDM series) 2022 DEPRESSION SCREENING 11/25/2024 COVID-19 VACCINE (3 - 2024-2 6 season) 2025 12/25/2021, 12/04/2021 INFLUENZA VACCINE (#1) 2025 ZOSTER VACCINE (1 of 2) 2045 HIB VACCINE Aged Out No longer eligi ble based on patient's age to complete this topic MENINGOCOCCAL (Group B) VACCINE SHARED DECISION-MAKING Aged Out No longer eligible based on patient's age to complete this topic MENINGOCOCCAL GROUPS A/C/Y/W VACCINE Aged Out No longer eligible b ased on patient's age to complete this topic PNEUMOCOCCAL VACCINE Aged Out No long er eligible based on patient's age to complete this topic Insurance * Guarantor: TANYA AGUILARYLYNN Account Type Relation to Patient Date of Phone Billing Address Personal/Family [address] [place] [address] [facility]/BLUE Copier How To [facility] SELF PAY NO INSURANCE Member Subscriber Plan / Payer (Ef fective for All Dates) Name:Tanya Aguilarylynn Member ID:Not on file Relation to Subscriber:Not on file Name:IVONNE AGUILAR Subscriber ID:Not on file Address: [address] [place] [phone] Payer ID:Not on file Group ID:Not on file Type:Self Pay Address: [place], [place] * Guarantor: TERRANCEIVONNE Account Type Relation to Patient Date of Phone Billing Address Personal/Family [address] [place] [address] BCBS/BLUE [facility] SELF PAY NO INSURANCE Member Subscriber Plan / Payer (Ef fective for All Dates) Name:Ivonne Aguilar Member ID:Not on file Relation to Subscriber:Not on file Name:IVONNE AGUILAR Subscriber ID:Not on file Address: [address] [place], [place] [id number] Payer ID:Not on file Group ID:Not on file Type:Self Pay Address: [place], [place] * Guarantor: TERRANCEIVONNE Account Type Relation to Patient Date of Phone Billing Address Personal/Family [address] [place] [address] BC/[employer]UE [employer] [facility] [place] SELF PAY NO INSURANCE Member Subscriber Plan / Payer (Ef fective for All Dates) Name:Ivonne Aguilar Member ID:Not on file Relation to Subscriber:Not on file Name:IVONNE AGUILAR Subscriber ID:Not on file Address: [address] [place] [phone] Payer ID:Not on file Group ID:Not on file Type:Self Pay Address: [place], [place]
--- OUTSIDE RECORDS SUMMARY | 2025-07-30 10:11 | XMS_ITS | Clinical Summary ---
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 Gender Identity Not on file Sexual Orientation Not on file Plan of Treatment Health Maintenance Due Date Last Done Comments Hepatitis C Virus (HCV) Screening 1995 Hepatitis B Immunization (1 of 3 - 19+ 3-dose series) 2014 SARS-COV-2 Immunization ( season) 2024 Influenza Immunization (#1) 2025 Respiratory Syncytial Virus (RSV) Immunization (Adult) (1 - 1-dose 75+ series) 2070 Human Papillomavirus (HPV) Immunization Completed 08/05/2009, 03/11/2009, 01/06/2009 Meningococcal Immunization (ACWY) Aged Out 06/16/2010 No longer eligible based on patient's age to complete this topic DTaP/Tdap/Td Immunization Discontinued 05/07/2012 TdaP Immunization Completed 05/07/2012 Pneumococcal Immunization Combined Aged Out No longer eligible based on patient's age to complete this topic Rotavirus Immunization Aged Out No lo nger eligible based on patient's age to complete this topic
--- OUTSIDE RECORDS SUMMARY | 2025-07-30 10:11 | XMS_ITS | Clinical Summary ---
Author Organization [facility] Address [address] [place] [address] Care Team Providers Care Bird Cage Assembler Name Role Phone Jeramy Lynn MD Unavailable [phone] Prerna Chirinos MD Primary Care Provider [phone] Allergies No known active allergies Medications norelgestromin-eth in.estradioL (ORTHO EVRA) 150-35 mcg/24 hrIndications:Preg flores Contraception Apply 1 patch each week for 3 weeks, then remove for 1 week. 3 patch 12 2 Active sertraline (ZOLOFT) 100 mg tablet Take 1 tablet (100 mg total) by mouth daily 30 tablet 5 2 Active Active Problems Problem Noted Date Diagnosed Date History of pre-eclampsia 09/17/2022 Obesity complicating in second trimest er 09/17/2022 Resolved Problems Problem Noted Date Diagnosed Date Resolved Date labor in second trim janine with delivery in second trimester, fetus 1 07/31/2022 09/17/2022 care following delivery 07/31/2022 09/17/2022 Overview (08/03/2022): # ID: Afebrile. No signs/symptoms of infection. #COVID-19: Test not indicated # Heme: EBL 800 mL. No symptoms acute blood loss anemia. Admit Hgb 10.9 > POD#1 8.6. # CV/Pulm: Vital signs stable, within normal limits. # Hx bariatric surgery: Avoid NSAIDs. # GI/: Tolerating PO. Adequate urine output, passed void trial. # Pain: Controlled with above regimen. Avoid NSAIDs. Increase in rib pain, likely gas pain. encourgaed simethicone and ambulation. # Post DVT prophylaxis: The patient has the following MAJOR risk factors none and the following MINOR risk factors BMI 30-39, delivery, multiple gestation and parity >/=3. enoxaparin 40 mg daily ordered for VTE prophylaxis. # MOC: Partner Vasectomy # MOF: Both formula and . Urine drug screen not indicated. Patient informed of results: N/A. # COVID Vaccination Status: Previously received # Disposition: Follow up task sent to [facility] scheduling pool. Desires discharge home today. Skin problem during pregnanc y in second trimester 05/24/2022 07/31/2022 Overview (05/24/2022): Suspect tinea corporis based on symptoms and clinical appearance. Rx for ketoconazole cream, apply daily for 2 weeks. If no resolution, plan for Dermatology referral Obesity complicating pregnan cy in second trimester 03/31/2022 09/17/2022 Overview (07/05/2022): Previously counseled Early GTT 117 Assessment & Plan (07/05/2022 11:36 AM CDT): Previously counseled Early GTT 117 Family history of adverse re action to anesthesia 03/31/2022 09/17/2022 Overview (04/26/2022): Patient with significant nausea following anesthesia. Will plan for anesthesia to meet with pt upon admission. Assessment & Plan (07/05/2022 11:37 AM CDT): Patient with significant nausea following anesthesia. Will plan for anesthesia to meet with pt upon admission. 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 Plan for echo for Twin B. - testing - Delivery at 36-37 weeks in absence of other indications Assessment & Plan (07/05/2022 11:36 AM CDT): Previously counseled Known marginal cord insertion of Twin A Currently concordant with no evidence of TTTS Plan - TTTS screening every 2 weeks - Specialized anatomy survey at 18-20 weeks - echocardiogram completed 06/18/22 - Twin A wnl, Twin B cannot rule out coarctation of aorta. Plan for echo for Twin B. - testing to start at 32 weeks - Delivery at 36-37 weeks in absence of other indications Assessment & Plan (03/31/2022 12:35 AM CDT): We reviewed the risks of a twin . Compared to arreola pregnancies, twin pregnancies are at increased risk of spontaneous and iatrogenic delivery, with an average gestational age of 35 weeks at delivery in the [place]. Due to this risk, higher rates of morbidity and mortality are seen in the infants of twin pregnancies. Additionally, increased rate of growth restriction, congenital anomalies, and loss are also seen. Increased maternal risks include development of gestational hypertension, preeclampsia, gestational diabetes, acute fatty liver, PUPPP, cholestasis, and thromboembolism. Additionally, the rate of delivery is increased in twin pregnancies. Specifically, monochorionic twins are at increased risk for unequal placental sharing, which can result in Ujhp-jz-Izsp transfusion Syndrome (TTTS), Twin Anemia-Polycythemia Sequence (TAPS), and selective intrauterine growth restriction. TTTS occurs in 10-15% of cases, and is marked by polyhydramnios in one twin and oligohydramnios in the other twin. Several stages exist, but cases range from mild disease to severe disease involving of one or both twins. We reviewed that TTTS is often unpredictable in onset and severity, although most cases occur prior to 26 weeks. Briefly, we discussed that treatment of worsening TTTS is laser therapy in the second trimester and delivery in the third trimester. TAPS is a chronic form of TTTS, and is seen in up to 6% of mono-di twins without any other evidence of TTTS. In the setting of these risks, we recommend starting a baby aspirin at 12 weeks due ot the increased risk of preeclampsia which she is already taking. Additionally, we recommend ultrasounds every 2 weeks starting now to screen for development of TTTS and follow growth. She will every 2 weeks for TTTS screening and every 4 weeks for growth. Additionally, a specialized anatomy ultrasound at 18-20 weeks is recommended to screen for congenital anomalies. The rate of congenital cardiac malformations in uncomplicated mono-di twins has been as high as 5% in some studies. Thus, echocardiograms are also recommended these twins for screening. surveillance starting at 32 weeks with delivery at 36-37 weeks in the absence of other morbidity is recommended. Supervision of high-risk pre gnancy, unspecified trimester 03/26/2022 09/17/2022 Overview (08/03/2022): [x] Full M Care; [] Red Team [x] Blue Team email sent for global on 04/26 Referring Provider: Jeramy Lynn [phone] [] or Medicare Insurance [x] Dating Criteria: [place] 02/19/22 with MARLY 09/07/22 [x] Labs: Rh [AB+], Ab [negative], Rubella [immune], HIV [negative], HepBSAg [negative], RPR [non-reactive], Hep C [Non reactive], Varicella [immune], GC/CT [Neg/Neg] [x] Genetic Screening: NIPT not covered and pt declines paying out of pocket [x] CBC/Hgb 12.5/37.7/plt 160 [x] Early 1hr GTT (if indicated) 03/06/22: 117 [x] UCx:03/06/22: 10,000-49,000 CFU/mL GBS [x] Pap: 09/13/20: NILM [x] LD ASA (if indicated) starting at 12 weeks: ordered 03/29 [] EPDS [ ]; PNBHS referral (if indicated) 2nd Tri Labs: [x] Anatomy ultrasound: complete and wnl x2 [x] CBC/1hr gtt at 24-28wks: CBC done 05/24: 11.7/35/194, 1 hour gtt: 155, 3 hr gtt: 83/206/65/69 [] Flu Shot (Jul-Oct): [x] Tdap (27-36wks): received 07/05/22 [place] [] COVID Vaccine: 3rd Tri Labs: [] CBC/HIV/RPR: [x] GBS: negative [] COVID testing: [] testin weeks for mono/di twins Counseling [] MOD: 36-37 weeks [x] Place of delivery: [facility] [] MOC: [] Method of feeding: [] Burrito Maker: [] PP Depression Discussed: Assessment & Plan (07/05/2022 11:38 AM CDT): Tdap done today Continue TTTS screening RTC 2 wks with growth + BPP Plan for twice weekly testing to start at 32 weeks, patient aware she will go to [facility] [x] Full M Care; [] Red Team [x] Blue Team email sent for global on 04/26 Referring Provider: Jeramy Lynn [phone] [] or Medicare Insurance [x] Dating Criteria: [place] 02/19/22 with MARLY 09/07/22 [x] Labs: Rh [AB+], Ab [negative], Rubella [immune], HIV [negative], HepBSAg [negative], RPR [non-reactive], Hep C [Non reactive], Varicella [immune], GC/CT [Neg/Neg] [x] Genetic Screening: NIPT not covered and pt declines paying out of pocket [x] CBC/Hgb 12.5/37.7/plt 160 [x] Early 1hr GTT (if indicated) 03/06/22: 117 [x] UCx:03/06/22: 10,000-49,000 CFU/mL GBS [x] Pap: 09/13/20: NILM [x] LD ASA (if indicated) starting at 12 weeks: ordered 03/29 [] EPDS [ ]; PNBHS referral (if indicated) 2nd Tri Labs: [x] Anatomy ultrasound: complete and wnl x2 [x] CBC/1hr gtt at 24-28wks: CBC done 05/24: 11.7/35/194, 1 hour gtt: 155, 3 hr gtt: 83/206/65/69 [] Flu Shot (Jul-Oct): [x] Tdap (27-36wks): received 07/05/22 [facility] [] COVID Vaccine: 3rd Tri Labs: [] CBC/HIV/RPR: [] GBS: [] GC/CT (if indicated): [] COVID testing: [] testin weeks for mono/di twins Counseling [] MOD: 36-37 weeks [x] Place of delivery: [facility] [] MOC: [] Method of feeding: [] Burrito Maker: [] PP Depression Discussed: Bariatric surgery status com plicating , third trimester 01/19/2021 09/17/2022 Overview (07/05/2022): Lost 130 lbs s/p procedure, between G1 and G2 pregnancies. Stable prepregnancy weight ~ 230 lbs. Plan for micronutrient labs every trimester - Iron, B12, folate, calcium, Vit D ordered, on Vit D supplementation - For repeat with 3T labs Assessment & Plan (07/05/2022 11:36 AM CDT): Lost 130 lbs s/p procedure, between G1 and G2 pregnancies. Stable prepregnancy weight ~ 230 lbs. Counseled previously. Plan for micronutrient labs every trimester - Iron, B12, folate, calcium, Vit D ordered, on Vit D supplementation - For repeat with 3T labs Assessment & Plan (03/31/2022 12:29 AM CDT): We discussed that in general, outcomes following bariatric surgery are favorable. Data suggest that the weight loss following surgery greatly decreases maternal risk of preeclampsia and gestational diabetes. Women are at risk for nutritional deficiencies following bariatric surgery, however, the frequency of these is lower in gastric sleeve patients versus Robyn-en-Y gastric bypass because it is a restrictive rather than malabsorptive procedure. We would still recommend screening for any micronutrient deficiency during . Most commonly implicated deficiencies are iron, B12, folate, calcium and vitamin D. Ms. Carlos reports daily folate and PNV supplementation. We discussed making sure her multivitamin pack contains at least 800 mcg of folic acid. We also discussed that we would not recommend continued weight loss during and recommendations for gestational weight gain in obesity are 25-42 lbs for a twin gestation. History of pre-eclampsia in prior , currently , third trimester 01/19/202108/26 Overview (07/05/2022): H/o preeclampsia in G1 Baseline labs: - [facility], UP completed Plan - ASA 81mg daily - continue to monitor for si/sx Assessment & Plan (07/05/2022 11:37 AM CDT): H/o preeclampsia in G1 Baseline labs: - [facility], UPC completed Plan - ASA 81mg daily - continue to monitor for si/sx Assessment & Plan (03/31/2022 12:33 AM CDT): We discussed that given her history of preeclampsia in a prior , she is at increased risk of developing preeclampsia in this . We reviewed preeclampsia and associated adverse outcomes including poor growth, hepatic or renal dysfunction, progression to eclampsia, increased risk of PTD (iatrogenic) and need for delivery. Some studies have suggested at a daily ASA 81mg throughout may modestly decrease the risk of recurrent preeclampsia, especially in those patients with early onset severe preeclampsia. We would recommend close monitoring of BPs, urine dips and preeclampsia symptoms throughout . Supervision of high-risk pre gnancy, unspecified trimester 01/19/2021 03/26/2022 Overview (01/19/2021): [] Co-management vs. [] Full [facility] Care; [] Red Team [] Blue Team Referring Provider: Jeramy Lynn [phone] [] or Medicare Insurance [x] Dating Criteria: LMP 09/06/20 MARLY 06/13/21 [x] Labs: Rh [AB+], Ab [negative], Rubella [immune], HIV [non- reactive], HepBSAg [non-reactive], RPR [non-reactive], GC/CT [negative/negative] [] Genetic Screening: [x] CBC/Hgb 14.4/40.9/plt 180 [x] Early 1hr GTT (if indicated) 10/26/20: 92 [x] UCx: 10/26/20 contaminated [x] Pap: 09/13/20 NILM [] LD ASA (if indicated) starting at 12 weeks: [] EPDS [ ]; PNBHS referral (if indicated) 2nd Tri Labs: [] Anatomy ultrasound: [] CBC/1hr gtt at 24-28wks: [] Flu Shot (Jul-Oct): [] Tdap (27-36wks): [] Rhogam at 28 wks (if Rh neg): 3rd Tri Labs: [] CBC/HIV/RPR/T&S: [] GBS: [] GC/CT (if indicated): [] COVID testing: Counselling [] MOD: [] Place of delivery: [] MOC: [] Method of feeding: [] Burrito Maker: [] PP Depression Discussed: Immunizations Immunization Administration Dates Next Due HPV, Quadrivalent 08/05/2009,03/11/2009,01/06/20 09 Hep A, Pediatric 01/06/2009,07/16/2006 Meningococcal Conjugate (Menveo) 06/16/2010 Tdap 07/05/2022,05/21/2021,05/07/2012 Surgical History Surgery Date Site/Laterality Comments SLEEVE GASTROPLASTY LAPAROSCOPIC CHOLECYSTECTOMY 11/25/2015 - 11/24/2016 Medical History Medical History Date Comments Supervision of high-risk pre gnancy, unspecified trimester 01/19/2021 [] Co-management vs. [] Full [facility] Care; [] Red Team [] Blue Team Referring Provider: Jeramy Lynn [phone] [] or Medicare Insurance [x] Dating Criteria: LMP 09/06/20 MARLY 06/13/21 [x] Labs: Rh [AB+], Ab [negative], Rubella [immune], HIV [non-reactive], HepBSAg [non-reactive], RPR [non-reactive], GC/CT [negative/negative] [] Genetic Screening: [x] CBC/Hgb 14.4/40.9/plt 180 Family History Medical History Relation Name Comments Heart disease Father Anesthesia problems Other Depression Other Diabetes type II Other Hyperlipidemia Other Hypertension Other Relation Name Status Comments Father Other Other Social History Tobacco Use Types Packs/Day Years Used Date Smoking Tobacco: Never Smokeless Tobacco: Never Tobacco Cessation:Counseling Given: Not Answered Social Connection and Isolation Panel Answer Date Recorded In a typical week, how many times do you talk on the phone with family, friends, or neighbors? More than three times a week 08/01/2022 How often do you get togethe r with friends or relatives? More than three times a week 08/01/2022 How often do you attend chur ch or adventism services? Never 08/01/2022 Do you belong to any clubs o r organizations such as worship groups, unions, fraternal or athletic groups, or school groups? No 08/01/2022 How often do you attend meet ings of the clubs or organizations you belong to? Never 08/01/2022 Are you , , di vorced, , never , or living with a partner? Living with partner 08/01/2022 AUDIT-C Answer Date Recorded Q1: How often do you have a drink containing alc ohol? Never 05/21/2022 Average Number of Drinks Not on file 022 Q3: How often do you have si x or more drinks on one occasion? Never 05/21/2022 Overall Financial Resource Strain (CARDIA) Answe r Date Recorded How hard is it for you to pa y for the very basics like food, housing, medical care, and heating? Not very hard 08/01/2022 Hunger Vital Sign Answer Date Recorded Within the past 12 months, y ou worried that your food would run out before you got the money to buy more. Never true 08/01/20 22 Within the past 12 months, t he food you bought just didn't last and you didn't have money to get more. Never true 08/01/2022 PRAPARE - Transportation Answer Date Re corded In the past 12 months, has l ack of transportation kept you from medical appointments or from getting medications? No 05/2022 In the past 12 months, has l ack of transportation kept you from meetings, work, or from getting things needed for daily living? No 08/01/2022 Housing Stability Vital Sign Answer Antonio e Recorded In the last 12 months, was t here a time when you were not able to pay the mortgage or rent on time? No 08/01/2022 In the last 12 months, how many places have you lived? 1 08/01/2022 In the last 12 months, was t here a time when you did not have a steady place to sleep or slept in a fdc (including now)? No 08/01/2022 Frostproof Depression Scale Answer Date Recorded Frostproof Depression Scale Total 14 08/20/2022 The thought of harming myself has occurred to me . Never 08/20/2022 Personal Safety Answer Date Recorded Have you ever been in or are you currently in a harmful physical or emotional relationship or is someone making you feel afraid or unsafe? Denies 10/20/2023 Comments No Sex and Gender Information Value Date Recorded Sex Assigned at Not on file Legal Sex Female 1:04 PM CARE ANALYST Gender Identity Not on file Sexual Orientation Not on file Obstetrics History Para Term AB IAB SAB Ectopic Multiple Livin g Live Births 3 3 2 1 1 4 4 Date Outcome GA Total Labor Labor/2nd/3rd Weight Sex Type Anes PTL Emma A1 A5 Name Clin 2014 Term 37w 0d 2.296 kg (5 lb 1 oz) M Vag-S pont Epidur al Livin g 2020 Term 39w 0d 3.374 kg (7 lb 7 oz) M Vag-S pont Livin g 2021 34w 4d 0h 03m 0h 03m 2.02 kg (4 lb 7.3 oz) F CS-LT ranv Combin ed Spinal /Epidu ral Y Livin g 7 8 POOL, TWOGI Rylee Manzanares MD Complications:None Delivery Location:[facility] Main C amp[facility] ([facility] L AND D PROCEDURE) 2021 34w 4d 0h 03m 0h 03m 2.03 kg (4 lb 7.6 oz) F CS-LT ranv Combin ed Spinal /Epidu ral Y Livin g 8 9 POOL, ONEGI Rylee Manzanares MD Complications:Abruptio Place nta Delivery Location:[facility] Main C amp[facility] ([facility] L AND D PROCEDURE) Last Filed Vital Signs Vital Sign Reading Time Taken Comments Blood Pressure 139/91 10/20/2023 9:15 PM CARE ANALYST Pulse 75 10/20/2023 9:15 PM CARE ANALYST Temperature 37.2 C (99 F) 10/20/2023 7:08 PM CARE ANALYST Respiratory Rate 18 10/20/2023 8:15 PM CARE ANALYST Oxygen Saturation 100% 10/20/2023 9:15 PM CARE ANALYST Inhaled Oxygen Concentration - - Weight 99.6 kg (219 lb 9.3 oz) 10/20/2023 12:38 PM CARE ANALYST Height 167.6 cm (5' 6) 10/20/2023 12:38 PM CARE ANALYST Body Mass Index 35.44 10/20/2023 12:38 PM CARE ANALYST Plan of Treatment Health Maintenance Due Date Last Done Comments Cervical Cancer Screening 1995 Varicella Vaccines (1 of 2 - 13+ 2-dose series) 2008 Hepatitis B Screening 2013 Regular Well Visit/Exam 18-64 2013 Depression Screening 08/20/2023 08/20/2022 Influenza Vaccine (#1) 2025 DTaP/Tdap/Td Vaccine (4 - Td or Tdap) 07/05/2032 07/05/2022, 05/21/2021, 05/07/2012 HPV Vaccines Completed 08/05/2009, 03/11/2009, 01/06/2009 Hepatitis C Screening Completed 05/24/2022 Pneumococcal vaccine <65 Aged Out No longer eligible based on patient's age to complete this topic Procedures Procedure Name Priority Date/Time Associated Diagnosis Comments HEPATITIS C ANTIBODY Routine 05/24/2022 2:43 PM CDT Supervision of high-risk , unspecified trimester from Last 3 Months or Most Recently Relevant to Health Maintenance Results * Hepatitis C antibody (05/24/2022 2:43 PM CDT) Hep C Ab Nonreactive Nonreactive [facility] Comment: Interpretive Data Nonreactive: Antibodies to HCV not detected. Does NOT exclude the possibility of recent exposure to HCV. Equivocal: Equivocal for HCV antibodies. Supplemental molecular testing will be automatically performed to determine infection status in accordance with current CDC screening recommendations. Reactive: Positive for HCV antibodies. This may represent current or past HCV infection. Supplemental molecular testing will be automatically performed to determine current infection status in accordance with current CDC screening recommendations. Interpretive data was last revised on 2020. Blood 05/24/2022 2:43 PM CDT 05/24/2022 5:29 PM CDT Mali Choudhary MD LAB MICROBIOLOGY - GENERAL ORDERABLES Final Result [facility] [address] [facility] Department [place] [address] from Last 3 Months or Most Recently Relevant to Health Maintenance Insurance [employer] ACCESS CHOICE [employer] [facility] CHOICE PLUS [facility] HMO/PPO Address: [address] [address] [place] [address] Advance Directives For more information, please contact: [phone] * Full Code (Latest Code Status on File) Date Activated Date Inactivated Comments 07/31/2022 7:14 PM 08/03/2022 10:09 PM * Full Code Date Activated Date Inactivated Comments 07/31/2022 2:43 PM 07/31/2022 7:14 PM Full CPR in ca se of cardiopulmonary arrest Care Teams Bird Cage Assembler Relationship Specialty Start Date End Date Prerna Chirions MD [address] [place] [address] PCP - General Family Medicine 03/29/22 Jeramy Lynn MD [address] [place] [address] Referring Physician Obstetrics and Gynecology 01/19/21
== END 2025-07-30 09:40 | disposition home or self-care (01) ==
PROVIDERS: PCP Family Medicine; Visit Provider Student in an Organized Health Care Education/Training Program
DX: R10.2 Pelvic and perineal pain (principal)
CPT/HCPCS: 87086

== ENCOUNTER 2025-08-20 17:32 | Emergency (ER) | payer OTHER, SELFPAY ==
[2025-08-20 18:06] VITALS: BP 126/74; PULSE 74; RESP 16; TEMP 36.5; O2SAT 100
--- NOTE | 2025-08-20 18:37 | ED_ITS ---
HPI - Female Genitourinary General Chief complaint: Urogenital-Female <Mariposa Ocampo PA-C - Last Filed: 08/23/25 10:11> Stated complaint: female problems <Mariposa Ocampo PA-C - Last Filed: 08/23/25 10:11> Time Seen by Provider: 08/20/25 18:37 <Mariposa Ocampo PA-C - Last Filed: 08/23/25 10:11> Focused HPI: This is a 29 year old female that presents to the ER for dysuria. Reports pelvic cramping, vaginal discharge. Would like to be tested for STDs. GENERAL: Well-appearing, well-nourished, and in no acute distress. HEAD: Normocephalic, atraumatic. CHEST: Clear to auscultation. ?No respiratory distress. HEART: Regular rate and rhythm.? NEURO: ?Alert and oriented x3. Patient screened in triage and initial orders placed.? ?Additional care and disposition to be based upon?diagnostic testing and treatment. <Mariposa Ocampo PA-C - Last Filed: 08/23/25 10:11> Focused HPI: This is a 29 year old female that presents to the ER for dysuria. Reports pelvic cramping, vaginal discharge. Would like to be tested for STDs. GENERAL: Well-appearing, well-nourished, and in no acute distress. HEAD: Normocephalic, atraumatic. CHEST: Clear to auscultation. ?No respiratory distress. HEART: Regular rate and rhythm.? NEURO: ?Alert and oriented x3. Patient screened in triage and initial orders placed.? ?Additional care and disposition to be based upon?diagnostic testing and treatment. <Mely Lott PA-C - Last Filed: 08/20/25 21:41> Source: patient <MARINA Azar Last Filed: 08/20/25 21:41> Mode of arrival: ambulatory <Mely Lott PA-C - Last Filed: 08/20/25 21:41> Limitations: no limitations <MARINA Azar Last Filed: 08/20/25 21:41> History of Present Illness HPI Narrative: Agree with above HPI. Recently finished her normal menstrual cycle. <Mely Lott PA-C - Last Filed: 08/20/25 21:41> Related Data Allergies/Adverse reactions: Allergies Allergy/AdvReac Type Severity Reaction Status Date / Time No Known Allergies Allergy Unknown Verified 08/20/25 18:05 <Mariposa Ocampo PA-C - Last Filed: 08/23/25 10:11> Review of Systems Review of Systems: All systems reviewed & are unremarkable except as noted in HPI. <Mely Lott PA-C - Last Filed: 08/20/25 21:41> All systems reviewed & are unremarkable except as noted in HPI and below <Mely Lott PA-C - Last Filed: 08/20/25 21:41> PMFSH Past Medical History Medical History: Medical History H/O transfusion of packed red blood cells (10/20/23) (04/16/24) Depression Gastroesophageal reflux disease Marijuana use, continuous Myalgia Leg pain Thinning hair Vaginal discharge <Mariposa Ocampo PA-C - Last Filed: 08/23/25 10:11> Surgical History Surgical History: Surgical History H/O tubal ligation Delivery by section (07/31/22) primary emergency c/s at 34 weeks 4 days History of gynecological procedure 11/09/2021 telma removal in OR 05/07/24 Laparoscopic adhesiolysis, Laparoscopic bilateral salpingectomy, Laparoscopic right ovarian cystectomy, Hysteroscopy, Dilation and curettage, Endometrial ablation (failed) History of laparoscopic cholecystectomy 2016 History of surgery on arm Bariatric surgery status <Mariposa Ocampo PA-C - Last Filed: 08/23/25 10:11> Family History Family History: Family History Grandparent Family history of type 2 diabetes mellitus Father Heart disease Other Depression Family history of general anesthesia reaction Hyperlipidemia Hypertension <Mariposa Ocampo PA-C - Last Filed: 08/23/25 10:11> Social History Social History: Social History Smoking status: Never smoker Second hand tobacco smoke exposure: No Smoking end date: 11/25/19 Alcohol intake: current Alcohol use details: 1 a month Substance use: current Substance use type: marijuana Other substance usage details: daily at bedtime Do You Feel Safe in your Home?: Yes Lack of Transportation: No Lack of Food: Never True Current Housing: I Have Housing Concerned About Future Housing: No Difficulty Paying Gas/Electric Bills: No Difficulty Paying for Meds: No Currently Unemployed: No Education: High School Diploma/GED Difficulty w/ Childcare or Family Care: No Living arrangements: with family Additional living arrangements comments: single Occupation/Education: occupation 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 HEAD: Normocephalic, atraumatic. RESPIRATORY: Airway patent, respirations nonlabored. Clear to auscultation bilaterally, no rales, rhonchi, wheezing. CARDIOVASCULAR: Regular rate and rhythm without murmurs, rubs, or gallops. PELVIC: Mild erythema/inflammation of labia majora/minora. Some white thick discharge present in vaginal folds. Mild amount of thick white/yellow discharge in vaginal vault. No genital lesions or vesicular lesions. MUSCULOSKELETAL: Moves all extremities. No gross deformities. SKIN: Warm, dry, normal color. NEURO: A&O X3. Speech clear. PSYCHIATRIC: Appropriate mood and affect. Normal interaction. <Mely Lott PA-C - Last Filed: 08/20/25 21:41> Course Vital Signs Vital signs: Vital Signs Temperature 97.7 F 08/20/25 18:06 Pulse Rate 74 08/20/25 18:06 Respiratory Rate 16 08/20/25 18:06 Blood Pressure 126/74 08/20/25 18:06 Pulse Oximetry 100 08/20/25 18:06 Temperature 97.7 F 08/20/25 18:06 Pulse Rate 72 08/20/25 21:34 Respiratory Rate 14 08/20/25 21:34 Blood Pressure 145/76 H 08/20/25 21:34 Pulse Oximetry 95 08/20/25 21:34 <Mariposa Ocampo PA-C - Last Filed: 08/23/25 10:11> Vital Signs Temperature 97.7 F 08/20/25 18:06 Pulse Rate 74 08/20/25 18:06 Respiratory Rate 16 08/20/25 18:06 Blood Pressure 126/74 08/20/25 18:06 Pulse Oximetry 100 08/20/25 18:06 Temperature 97.7 F 08/20/25 18:06 Pulse Rate 72 08/20/25 21:34 Respiratory Rate 14 08/20/25 21:34 Blood Pressure 145/76 H 08/20/25 21:34 Pulse Oximetry 95 08/20/25 21:34 <Mely Lott PA-C - Last Filed: 08/20/25 21:41> MDM - Female Genitourinary MDM Narrative Medical decision making narrative: Patient presented to ED with vaginal irritation, abnormal vaginal discharge. Wanting to be tested for STDs. Vital signs stable upon arrival. Patient in no acute distress. Pelvic exam without evidence of genital lesions, does show findings consistent with possible yeast infection. Given dose of Diflucan in the ED. Urinalysis appears infected. Sent for culture. Urine negative. Trichomonas negative. Gonorrhea, chlamydia negative. Patient started on Keflex in the ED. Prescription sent to pharmacy. Advised close follow-up with PCP. Given return precautions. Patient in agreement with plan. Discharged in stable condition. <Mely Lott PA-C - Last Filed: 08/20/25 21:41> Medical Records Attestation: I reviewed the patient's medical records. <Mely Lott PA-C - Last Filed: 08/20/25 21:41> Lab Data Attestation: I reviewed the patient's lab results. <Mely Lott PA-C - Last Filed: 08/20/25 21:41> Labs: Lab Results 08/20/25 08/20/25 08/20/25 Range/Units 19:21 19:22 19:24 Urine Color Yellow (Yellow) Urine Appearance Turbid H (Clear) Urine pH 6.0 (5.0-9.0) Ur Specific [place] 1.020 (1.001-1.035) Urine Protein Negative (Negative) mg/dL Urine Glucose (UA) Negative (Negative) mg/dL Urine Ketones Trace H (Negative) mg/dL Ur Blood (Man) Negative (Negative) Urine Nitrate Negative (Negative) Urine Bilirubin Negative (Negative) Urine Urobilinogen 1.0 (<2.0) mg/dL Add Ur Microanalysis Reviewed Leukocyte Esterase Rfl 3+ H (Negative) LEONOR/UL Urine RBC 21-50 H (0-2) /hpf Urine WBC 21-50 H (0-3) /hpf Ur Squamous Epith Cells Many H (Few) /hpf Urine Bacteria 3+ H /hpf Urine Casts 0-2 Urine Mucus Present /lpf POC Urine HCG, Qual Negative (Negative) C. trachomatis (PCR) Not detected (NOT DETECTE) N. gonorrhoeae (PCR) Not detected (NOT DETECTE) T. vaginalis (PCR) Not detected (NOT DETECTE) <Mariposa Ocampo PA-C - Last Filed: 08/23/25 10:11> Lab Results 08/20/25 08/20/25 08/20/25 Range/Units 19:21 19:22 19:24 Urine Color Yellow (Yellow) Urine Appearance Turbid H (Clear) Urine pH 6.0 (5.0-9.0) Ur Specific [place] 1.020 (1.001-1.035) Urine Protein Negative (Negative) mg/dL Urine Glucose (UA) Negative (Negative) mg/dL Urine Ketones Trace H (Negative) mg/dL Ur Blood (Man) Negative (Negative) Urine Nitrate Negative (Negative) Urine Bilirubin Negative (Negative) Urine Urobilinogen 1.0 (<2.0) mg/dL Add Ur Microanalysis Reviewed Leukocyte Esterase Rfl 3+ H (Negative) LEONOR/UL Urine RBC 21-50 H (0-2) /hpf Urine WBC 21-50 H (0-3) /hpf Ur Squamous Epith Cells Many H (Few) /hpf Urine Bacteria 3+ H /hpf Urine Casts 0-2 Urine Mucus Present /lpf POC Urine HCG, Qual Negative (Negative) C. trachomatis (PCR) Not detected (NOT DETECTE) N. gonorrhoeae (PCR) Not detected (NOT DETECTE) T. vaginalis (PCR) Not detected (NOT DETECTE) <Mely Lott PA-C - Last Filed: 08/20/25 21:41> Critical Care Time Critical Care Time Critical Care Time: No <MARINA Bangura Last Filed: 08/23/25 10:11> Discharge Plan Discharge Clinical Impression: Vaginal irritation UTI (urinary tract infection) Qualifiers: Urinary tract infection type: acute cystitis Hematuria presence: without hematuria Qualified Code(s): N30.00 - Acute cystitis without hematuria <MARINA Bangura Last Filed: 08/23/25 10:11> Patient Disposition: Home <MARINA Bangura Last Filed: 08/23/25 10:11> Condition: Stable <Mariposa Ocampo PA-C - Last Filed: 08/23/25 10:11> Instructions: Antibiotic Form, Urinary Tract Infection in Women (ED), Vaginal Discharge (ED) <MARINA Bangura Last Filed: 08/23/25 10:11> Additional Instructions: You tested negative for gonorrhea, chlamydia, Trichomonas. Take Keflex as prescribed for urinary tract infection. You may use Sitz baths to help with inflammation. Follow-up with your primary care doctor for further evaluation. Return for new or worsening concerns. <Mariposa Ocampo PA-C - Last Filed: 08/23/25 10:11> Patient Language: Somali <MARINA Bangura Last Filed: 08/23/25 10:11> Prescriptions: New cephalexin 500 mg capsule 500 mg PO Q6H 7 Days Qty: 28 0RF <MARINA Bangura Last Filed: 08/23/25 10:11> Follow-up/Referrals: Prerna Chirinos MD [Physician, Family Practice] <MARINA Bangura Last Filed: 08/23/25 10:11> Time of Disposition: 21:10 <Mariposa Ocampo PA-C - Last Filed: 08/23/25 10:11> 21:10 <Mely Lott PA-C - Last Filed: 08/20/25 21:41>
[2025-08-20 19:26] LABS: BEDSIDEPREGUCG Negative (Negative)
--- OUTSIDE RECORDS SUMMARY | 2025-08-20 19:35 | XMS_ITS | Clinical Summary ---
Author Organization [facility] Address [address] [place] [address] Care Team Providers Care Porcelain Enameler Name Role Phone Jeramy Lynn MD Unavailable [phone] Prerna Chirinos MD Primary Care Provider [phone] Allergies No known active allergies Medications norelgestromin-eth [...] # Disposition: Follow up task sent to [facility] scheduling pool. Desires discharge home today. Skin [...] unequal placental sharing, which can result in Brxy-jc-Crbw transfusion Syndrome (TTTS), Twin Anemia-Polycythemia Sequence (TAPS), [...] global on 04/26 Referring Provider: Jeramy Lynn [phone] [] or Medicare Insurance [x] Dating Criteria: [...] [] MOC: [] Method of feeding: [] C D Area Supervisor: [] PP Depression Discussed: Assessment & Plan (07/05/2022 11:38 AM CDT): Tdap done today Continue TTTS screening RTC 2 wks with growth + BPP Plan for twice weekly testing to start at 32 weeks, patient aware she will go to [facility] [x] Full M Care; [] Red Team [x] Blue Team email sent for global on 04/26 Referring Provider: Jeramy Lynn [phone] [] or Medicare Insurance [x] Dating Criteria: [...] [] MOC: [] Method of feeding: [] C D Area Supervisor: [] PP Depression Discussed: Bariatric surgery status [...] H/o preeclampsia in G1 Baseline labs: - [facility], UP completed Plan - ASA 81mg daily - continue to monitor for si/sx Assessment & Plan (07/05/2022 11:37 AM CDT): H/o preeclampsia in G1 Baseline labs: - [facility], UPC completed Plan - ASA 81mg daily [...] Overview (01/19/2021): [] Co-management vs. [] Full [facility] Care; [] Red Team [] Blue Team Referring Provider: Jeramy Lynn [phone] [] or Medicare Insurance [x] Dating Criteria: [...] [] MOC: [] Method of feeding: [] C D Area Supervisor: [] PP Depression Discussed: Immunizations Immunization Administration Dates Next Due HPV, Quadrivalent 08/05/2009,03/11/2009,01/06/20 09 Hep A, Pediatric 01/06/2009,07/16/2006 Meningococcal Conjugate (Menveo) 06/16/2010 Tdap 07/05/2022,05/21/2021,05/07/2012 Surgical History Surgery Date Site/Laterality Comments SLEEVE GASTROPLASTY LAPAROSCOPIC CHOLECYSTECTOMY 11/25/2015 - 11/24/2016 Medical History Medical History Date Comments Supervision of high-risk pre gnancy, unspecified trimester 01/19/2021 [] Co-management vs. [] Full [facility] Care; [] Red Team [] Blue Team Referring Provider: Jeramy Lynn [phone] [] or Medicare Insurance [x] Dating Criteria: [...] often do you attend chur ch or mandaen services? Never 08/01/2022 Do you belong to any clubs o r organizations such as shinto groups, unions, fraternal or athletic groups, or [...] place to sleep or slept in a usp (including now)? 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 Gender Identity Not on file Sexual Orientation [...] POOL, TWOGI Rylee Manzanares MD Complications:None Delivery Location:[facility] Main C ampus ([facility] L AND D PROCEDURE) 2021 34w 4d 0h 03m 0h 03m 2.03 kg (4 lb 7.6 oz) F CS-LT ranv Combin ed Spinal /Epidu ral Y Livin g 8 9 POOL, ONEGI Rylee Manzanares MD Complications:Abruptio Place nta Delivery Location:[facility] Main C ampus ([facility] L AND D PROCEDURE) Last Filed Vital Signs Vital Sign Reading Time Taken Comments Blood Pressure 139/91 10/20/2023 9:15 PM CLINICAL TRIAL SPECIALIST Pulse 75 10/20/2023 9:15 PM CLINICAL TRIAL SPECIALIST Temperature 37.2 C (99 F) 10/20/2023 7:08 PM CLINICAL TRIAL SPECIALIST Respiratory Rate 18 10/20/2023 8:15 PM CLINICAL TRIAL SPECIALIST Oxygen Saturation 100% 10/20/2023 9:15 PM CLINICAL TRIAL SPECIALIST Inhaled Oxygen Concentration - - Weight 99.6 kg (219 lb 9.3 oz) 10/20/2023 12:38 PM CLINICAL TRIAL SPECIALIST Height 167.6 cm (5' 6) 10/20/2023 12:38 PM CLINICAL TRIAL SPECIALIST Body Mass Index 35.44 10/20/2023 12:38 PM CLINICAL TRIAL SPECIALIST Plan of Treatment Health Maintenance Due Date [...] - GENERAL ORDERABLES Final Result [facility] [address] [facility] Department [place] [address] from Last 3 Months or Most Recently Relevant to Health Maintenance Insurance [employer] ACCESS CHOICE [employer] [facility] CHOICE PLUS Advance Directives For more information, please contact: [phone] * Full Code (Latest Code Status on File) Date Activated Date Inactivated Comments 07/31/2022 7:14 PM 08/03/2022 10:09 PM * Full Code Date Activated Date Inactivated Comments 07/31/2022 2:43 PM 07/31/2022 7:14 PM Full CPR in ca se of cardiopulmonary arrest Care Teams Porcelain Enameler Relationship Specialty Start Date End Date Prerna Chirinos MD [address] [place] [address] PCP - General Family Medicine 03/29/22 Jeramy Lynn MD [address] [place] [address] Referring Physician Obstetrics and Gynecology 01/19/21
--- OUTSIDE RECORDS SUMMARY | 2025-08-20 19:35 | XMS_ITS | Clinical Summary ---
Author Organization [facility] Address [address] [place] [address] Care Team Providers Care Instructional Technology Director Name Role Phone Unavailable Primary Care Provider Unavailabl e Source Comments [facility],non-owned Affiliates and Associated Physician Practices is amultiple site organization consisting of ambulatory clinics and hospital sitesin [place], [place], [place]. This disclosure is being madepursuant to the Care Everywhere program and may not contain all information available regarding this patient. 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 Gender Identity Not on file Sexual [...] Date of Phone Billing Address Personal/Family [address] [place] [address] [facility]/[employer] [facility] SELF PAY NO INSURANCE Member Subscriber Plan / Payer (Ef fective for All Dates) Name:Tanya Aguilarylynn Member ID:Not on file Relation to Subscriber:Not on file Name:IVONNE AGUILAR Subscriber ID:Not on file Address: [address] [place] [id number] Payer ID:Not on file Group ID:Not on file Type:Self Pay Address: [place], [place] * Guarantor: TERRANCEIVONNE Account Type Relation to Patient Date of Phone Billing Address Personal/Family [address] [place] [address] [employer] [facility] SELF PAY NO INSURANCE Member Subscriber Plan / Payer (Ef fective for All Dates) Name:Ivonne Aguilar Member ID:Not on file Relation to Subscriber:Not on file Name:IVONNE AGUILAR Subscriber ID:Not on file Address: [address] [place], [place] [id number] Payer ID:Not on file Group ID:Not on file Type:Self Pay Address: [place], [place] * Guarantor: TERRANCEIVONNE Account Type Relation to Patient Date of Phone Billing Address Personal/Family [address] [place] [address] [employer] [facility] [employer] [facility] [place] SELF PAY NO INSURANCE Member Subscriber Plan / Payer (Ef fective for All Dates) Name:Ivonne Aguilar Member ID:Not on file Relation to Subscriber:Not on file Name:IVONNE AGUILAR Subscriber ID:Not on file Address: [address] [place] [id number] Payer ID:Not on file Group ID:Not on file Type:Self Pay Address: [place], [place]
--- OUTSIDE RECORDS SUMMARY | 2025-08-20 19:35 | XMS_ITS | Clinical Summary ---
Author Organization [facility] Care Team Providers Care Python Java Developer Name Role Phone Unavailable Primary Care Provider Unavailabl e Social History Tobacco Use Types Packs/Day Years Used Date Smoking Tobacco: Never Assessed Comments Unknown Sex and Gender Information Value Date Recorded Sex Assigned at Not on file Legal Sex Female 12:33 PM DISABILITY EXAMINER Gender Identity Not on file Sexual Orientation Not on file Plan of Treatment Health Maintenance Due Date Last Done Comments Hepatitis C Virus (HCV) Screening 1995 Hepatitis B Immunization (1 of 3 - 19+ 3-dose series) 2014 SARS-COV-2 Immunization (2023- season) 2024 Influenza Immunization (#1) 2025 Respiratory [...]
--- OUTSIDE RECORDS SUMMARY | 2025-08-20 19:35 | XMS_ITS | Clinical Summary ---
Author Organization [employer] [address] [facility] [address] [place] [address] Phone Care Team Providers Care Wellness Director Name Role Phone John Bernal MD Primary Care Provider [phone] Social History Tobacco Use Types Packs/Day Years [...] BCBS BLUE ACCESS/TRUE BLUE PPO Care Teams Wellness Director Relationship Specialty Start Date End Date John Bernal MD [address] [facility] [address] [place] [address] PCP - General Obstetrics and Gynecology 04/11/15
[2025-08-20 19:37] LABS: Add Urine Microscopic? YES; Appearance Urine Turbid (Clear); Glucose Urine UA Negative (Negative); Leukocyte Esterase Ur 3+ LEU/UL (Negative); Need Manual Microscopic Reviewed; Nitrate Urine Negative (Negative); Non Pathogenic Casts 0-2; Specific Grav Ur 1.020 (1.001-1.035)
[2025-08-20 20:33] LABS: Trichomonas Vag PCR NOT DETECTED (NOT DETECTE)
[2025-08-20] MEDS: FLUCONAZOLE 150 MG TABLET PO (20:49)
[2025-08-20] MEDS: CEPHALEXIN 500 MG CAPSULE PO (21:31)
[2025-08-20 21:34] VITALS: BP 145/76; PULSE 72; RESP 14; O2SAT 95
== END 2025-08-20 21:37 | disposition home or self-care (01) ==
PROVIDERS: Physician Assistant; Emergency Provider Physician Assistant
DX: N30.00 Acute cystitis without hematuria (principal); N76.89 Other specified inflammation of vagina and vulva; F12.90 Cannabis use, unspecified, uncomplicated
CPT/HCPCS: 81001; 81025; 87086; 87186; 87491; 87591; 87661; 99284; A9270